=== PATIENT | male | born 1965 | race Two or more races ===

== ENCOUNTER 2023-10-30 22:07 | Inpatient (IN) | payer OTHER, SELFPAY ==
[2023-10-30] VITALS (8 sets, daily range): BP systolic 119–140; BP diastolic 77–106; BMI 28.5
[2023-10-30 17:10] LABS: % Basophils 1.4 % (0-2); % Eosinophils 1.6 % (0-6); % Immature Granulocytes 2.3 % (0-0.5); % Lymphocytes 23.7 % (20.5-51.1); % Monocytes 9.3 % (1.7-9.3); % Neutrophils 61.7 % (42.2-75.2); Absolute Basophils 0.1 10^3/uL (0-0.2); Absolute Eosinophils 0.1 10^3/uL (0-0.7); Absolute Immature Granulocytes 0.1 10^3/uL (0-0.05); Absolute Monocytes 0.4 10^3/uL (0.1-0.6); Absolute Neutrophils 2.7 10^3/uL (1.4-6.5); Hematocrit 32.6 % (39.0-52.0); Hemoglobin 11.4 g/dL (13.0-18.0); Mean Corpuscular Hgb 31.1 pg (27.0-31.0); Mean Corpuscular Volume 89.1 fL (80.0-94.0); Nucleated Red Blood Cells % 0 % (-); Platelet Count 150 10^3/uL (130-400); Red Blood Cell Count 3.66 10^6/uL (4.70-6.10); Red Cell Dist. Width 15.1 % (11.5-14.5); White Blood Cell Count 4.3 10^3/uL (4.8-10.8)
[2023-10-30 17:27] LABS: ALT (SGPT) 50 U/L (0-50); AST (SGOT) 94 U/L (17-59); Albumin 4.4 g/dl (3.5-5.0); Alkaline Phosphatase 44 U/L (38-126); Blood Urea Nitrogen 18 mg/dl (9-20); Calcium 8.7 mg/dl (8.4-10.2); Carbon Dioxide 35 mmol/L (22-30); Chloride 85 mmol/L (98-107); Estimated Creatinine Clearance 112 ml/min; Glucose 121 mg/dl (70-99); Potassium 4.2 mmol/L (3.5-5.1); Sodium 125 mmol/L (135-145); Total Bilirubin 0.6 mg/dl (0.2-1.3); Total Protein 6.6 g/dl (6.3-8.2); eGFR > 60.00
[2023-10-30 17:28] LABS: COVID-19 Antigen Negative (Negative)
[2023-10-30 17:40] LABS: NT-proBNP 32.7 pg/ml; Troponin I < 0.012 ng/ml
--- NOTE | 2023-10-30 17:56 | ED.GENMED ---
History of Present Illness
General
Chief Complaint: Breathing Problem
Source: patient
Time Seen by Provider: 10/30/23 17:43
History of Present Illness
History of Present Illness:
This patient is a 58-year-old male who is overall poor historian, states he was recently diagnosed with lung cancer and just got approved for chemotherapy although it has not yet been started. He does have a port in place. He states that he is
typically dyspneic, but it progressively worse since Monday such that he needed to come to the emergency department today. Since arrival, he states he feels better. He does note lower extremity edema, which has been subacute/chronic in nature. He
denies orthopnea or PND, fever, chills, cough, sore throat, rhinorrhea. He says he 'cannot tell' if he has chest pain. Patient reportedly is supposed to be on oxygen at home but has been noncompliant with that. He states that he lives in a
trailer. He also notes that he has not had a bowel movement in 3 weeks but still has a normal appetite without associated nausea or vomiting. He notes increasing abdominal distention. He denies any other complaints.
Past History
Past History
ED Past Medical History: Other (Lung cancer)
ED Past Surgical History: Orthopedic
Social History
Tobacco: Smoker
Alcohol: None
Drug: None
Living: alone
Employment: Disabled
Phy Exam
Physical Exam
Physical Exam:
GENERAL: Alert , in no apparent distress
EYE: pupils equal and reactive
NECK: Supple, no significant adenopathy.
ENT: o/p clr, mm dry.
CARDIAC: Regular rate and rhythm .
LUNGS: Equal breath sounds bilaterally, no acute respiratory distress, diffuse wheezing noted, speaks in full sent
ABDOMEN: Soft, without focal tenderness, no r/g, nabs, distented
NEUROLOGICAL: Alert and oriented, no focal neuro deficits
SKIN: Warm and dry, skin intact.
MUSCULOSKELETAL: 2+ bilat edema, well perfused.
PSYCH: Normal and appropriate interaction.
Scores
Heart Failure Risk
Heart Failure Risk Score: Not Applicable
Course
Orders/Labs/Results
Orders:
Orders
10/30/23 Lunch
Regular
At Your Request: Full Participation
10/30/23 16:48
EKG [Electrocardiogram (*1)] Urgent
Reason for Study: Shortness of Breath
10/30/23 16:49
EKG- Treatment ONCE
10/30/23 17:03
CBC/With Diff [Complete Blood Count/With Diff] Urgent
CMP [Comprehensive Metabolic Panel] Urgent
COVID-19 Antigen Urgent
Source: Nasal Swab
Pro-BNP [NT-proBNP] Urgent
Serum Osmolality Urgent
Comment: ADD ON
Troponin I Urgent
Influenza A+B Rapid Molecular Urgent
ERIK Source: Nasal Swab
Specimen Description:
10/30/23 17:54
Dexamethasone Sod Phosphate [Decadron] 10 mg IV NOW STA
Ipratropium/Albuterol Sulfate [Duoneb] 3 ml INH R NOW STA
CR Abdomen - 2 Views Urgent
Reason For Exam: DISTENTION, CONSTIPATION
10/30/23 17:55
CR Chest - 2 Views Urgent
Comment:
Reason For Exam: hx L lung ca, now sob
10/30/23 18:00
Dexamethasone Sod Phosphate [Decadron] 8 mg .ROUTE .STK-MED ONE
10/30/23 18:56
CT Abd/pelvis Wo Iv Cont Urgent
Comment:
Reason For Exam: distention
10/30/23 21:07
Straight cath- Treatment ONCE
10/30/23 21:16
Osmolality, Random Urine Urgent
Date Specimen was Collected: 10/30/23
Time Specimen was Collected: 21:06
Urine Sodium Urgent
Date Specimen was Collected: 10/30/23
Time Specimen was Collected: 21:06
10/30/23 21:21
Add On- LAB Urgent
Tests Added?: serum osmolarity
10/30/23 21:35
Admit/Transfer Patient As Directed
Co-Sign Provider:
Level of Care: Inpatient admission
Assign to:: IMU- Intermediate Care
Physician / Group: Lupis/Hospitalist
Diagnosis: Acute hypoxic respiratory failure, COPD exacerbation, Lung CA, pericardial
Reason for Hospitalization: Acute hypoxic respiratory failure, COPD exacerbation, Lung CA, pericardial
effusion
Expected length of stay greater than two midnights?: Yes
ELOS- Estimated Length of Stay in days: 4
I certify the patient meets the requirements for IP care: Yes
10/30/23 21:36
Code Status As Directed
Resuscitation Status: Full Code
10/30/23 22:00
3% Sodium Chloride 250 ml [Sodium Chloride 3%] 250 ml IV ONCE
10/30/23 23:27
Guaifenesin Solution [Robitussin] 200 mg PO Q4HPRN PRN
Ipratropium/Albuterol Sulfate [Duoneb] 3 ml INH R Q4HPRN PRN
Nicotine [Nicoderm Transdermal] 21 mg TRANSDERM DAILY
10/30/23 23:27
CARDIOLOGY CONSULT Routine
Consulting Provider: Alpa Salinas
Was physician already notified: Yes
Reason for consult: Pericardial effusion, moderate , SOB, Lung CA
NEPHROLOGY CONSULT Routine
Consulting Provider: Shweta Vences
Was physician already notified: Yes
Reason for consult: hyponatremia
PULMONARY CONSULT Routine
Consulting Provider: Kyler Magana
Was physician already notified: Yes
Reason for consult: acure hypoxic resp failure, COPD exac, Lung CA
Respiratory Culture/Gram Stain Routine
ERIK Source: Sputum
Specimen Description:
Activity As Directed
Activity Level: With Assistance
Intake/ Output As Directed
Frequency: Per unit guidelines
Medical Records Request [Obtain Records] As Directed
Dates of Information to be Released: 2022
Type of Information Requested: Lab Results
Last Office Visit H&P
Medication List
Consults
Discharge Summary
Progress Notes
If Other, list type of info requested: [facility] and [facility]
Nursing to Place Non Medication Order As Directed
Physician Order: continue 3% sodium as started in the ED at 2056 sodium chloride 3% 250 mL @ 30 mL per hour IV
(stop time noted at 515)
Above order entered?: Yes
Pneumatic Compression Sleeves As Directed
Type: Knee high
Vital Signs As Directed
Frequency: Per unit guidelines
Copd Education [RESP] Routine
O2 Therapy [RESP] Routine
Nasal Cannula Liter Flow: 4 LPM
Titrate/Wean O2 to maintain O2 sat greater than (%): 92
Special Instructions: adjust, if necessary, to avoid hyperoxia in CO2 retainers.
Use High Flow O2 if necessary
DX Deep Vein Thrombosis Video Routine
10/31/23 02:00
Dexamethasone Sod Phosphate [Decadron] 6 mg IV Q8H
10/31/23 05:09
CMP [Comprehensive Metabolic Panel] IN AM
Complete Blood Count/With Diff IN AM
Protime/PTT IN AM
10/31/23 08:00
Ipratropium/Albuterol Sulfate [Duoneb] 3 ml INH R QID
Abnormal Lab Results
10/30/23
17:03
WBC 4.3 L 10^3/uL
(4.8-10.8)
RBC 3.66 L 10^6/uL
(4.70-6.10)
Hgb 11.4 L g/dL
(13.0-18.0)
Hct 32.6 L %
(39.0-52.0)
MCH 31.1 H pg
(27.0-31.0)
RDW 15.1 H %
(11.5-14.5)
Abs Immat Gran (auto) 0.1 H 10^3/uL
(0-0.05)
Absolute Lymphs (auto) 1.0 L 10^3/uL
(1.2-3.4)
Immature Gran % 2.3 H %
(0-0.5)
Sodium 125 L mmol/L
(135-145)
Chloride 85 L mmol/L
(98-107)
Carbon Dioxide 35 H mmol/L
(22-30)
Glucose 121 H mg/dl
(70-99)
Serum Osmolality 269 L mOsm/kg
(275-300)
AST 94 H U/L
(17-59)
10/30/23 17:03
10/30/23 17:03
Vital Signs
Initial and Last Documented VS:
Initial Vital Signs
Temp Pulse Resp BP Pulse Ox
98.5 F 83 25 140/89 87
10/30/23 16:50 10/30/23 16:50 10/30/23 16:50 10/30/23 16:50 10/30/23 16:50
Last Documented Vital Signs
Temp Pulse Resp BP Pulse Ox
99.4 F 87 18 125/77 95
11/02/23 20:00 11/02/23 20:00 11/02/23 20:00 11/02/23 20:00 11/02/23 20:00
*Critical Care Note
Total Time (30-74mins, 75-104mins- exclusive of procedures): 30
Update Note
Update Note:
Patient presents to the Emergency Department with ____dyspnea
Number and Complexity of Problems Addressed at the Encounter
� Chronic conditions affecting care:
� Acute Exacerbation and/or Progression of Chronic Illness:
� Differential Diagnosis includes: But not limited to COPD exacerbation, pneumonia, lung cancer, PE, ACS, pneumothorax, etc. etc.
Amount and/or Complexity of Data to be Reviewed and Analyzed
� I performed an independent evaluation of and my interpretation is:
EKG: Read by me, normal sinus rhythm, normal rate, right axis deviation, no acute ischemia
CT:
Xrays: cxr read by me, no specific pna/ptx/effusion noted, suspect cancer at L mid/lower lung
Laboratory Studies: Mild anemia noted, alkolisis likely chronic, hypoNa (no prior to compare) may be related to known lung Ca
Other:
� Review of other/old records reveals: none available
� Clinical information was obtained by an independent historian:
� Prescriptions/Medications Considered but not given:
� Further testing considered but not performed:
Risk of Complications and/or Morbidity or Mortality of Patient Management
� Social determinants of health affecting care:
� Discussion with other providers (PCP, Hospitalists, Consultants, etc):
� Escalation of care including admission/observation vs risk of discharge considered:58 yr old male, new dx of lung ca, has not yet started treatment, lives in a trailer/poorly compliant/takes no meds/smokes a ppd...presents with
sob....suspect copd exac. No pna, no ptx, etc noted. Improved with nebs/oxygen here. WHeezing improved s/p nebs. While PE risk factors given cancer/smoking, hx/exam etc most c/w copd exac and overall doubt concurrent PE. Also has Na of 125, no
prior records to compare. Pox stable on nc. I am awaiting nephro input on 3% rate...but will start that once I hear back. Nonspecific c/o constipation, moderate stool on axr without obstruction or fa noted, CT pending. D/w hospitalist for admission.
8:59 PM patient remained stable, blood pressure and heart rate specifically within normal limits. Upon my review, CAT scan consistent with pericardial effusion. However, patient is not acutely ill and I suspect may be cancerous related and more
chronic. Text sent to cardiology for their input. Case also discussed with nephrology, recommend rate at 30 cc/h which I have started and communicated to admitting hospitalist.
ED Attending Note
-
Portions of this chart may have been created with voice recognition software.� Occasional wrong word or��sound alike� substitutions may have occurred due to the inherent limitations of voice recognition software.
Discharge Plan
Departure
Patient Disposition: Admit
Date of Disposition: 10/30/23
Time of Disposition: 20:20
Admit to: Telemetry
Presentation/result/management discussed w/ accepting MD/DO: Hospitalist
Condition: Fair
Discharge Problem:
Acute exacerbation of chronic obstructive pulmonary disease, Acute hyponatremia
Interventions
Interventions:
*Risk Screen - Suicide Last Done: 10/30/23 16:50
*General Assessment Last Done: 10/30/23 16:50
*Neglect/Abuse Screening Last Done: 10/30/23 16:50
ED- Fall Risk Assessment Last Done: 10/30/23 16:57
*ED COVID-19 Vaccine History Last Done: 10/30/23 16:57
*Nursing Disposition Last Done: 10/30/23 23:10
ED- Cardiac Assessment Last Done: 10/30/23 16:57
ED- Pulmonary Assessment Last Done: 10/30/23 16:57
Discharge Date and Time
Discharge Date/Time: 10/30/23 23:10
[2023-10-30] MEDS: DECADRON 10 MG IV (18:04)
[2023-10-30] MEDS: DUONEB 3 ML INH (18:05)
--- NOTE | 2023-10-30 21:16 | HPS.HSE ---
Family Physician
-
Family Physician: * NONE
Chief Complaint
-
SOB
History of Present Illness
The patient is a 58-year-old gentleman with past medical history significant for recently diagnosed lung cancer being treated at [facility], the patient notes a trail 8 months ago of experimental lung ca txt that failed, and he has been
awaiting insurance approval for a second therapy however does not have transportation to receive this chemotherapy at this time, tobacco abuse 1 pack/day, likely COPD, came to emergency department due to progressive worsening of dyspnea since
Monday. He typically does have underlying dyspnea as well however it has been worsening. This is been associated with some lower extremity edema that is subacute or chronic in nature. He denies orthopnea, no PND, no fevers chills no cough, no
soreness of throat, no rhinorrhea nor upper respiratory infection symptoms. He notes that he is unable to tell if he has chest pain because he has pain in the port region. He says that he does sleep on the port nightly. He denies any substernal
chest pain at this time. He says that he is supposed to use oxygen at home however has been noncompliant. He is also noncompliant with medications. Of note he lives in a trailer and does not have a toilet. He notes that he has been constipated
for several days now. He has been able to urinate and he denies dysuria. He denies anorexia and says that he has been able to drink and eat without problems.
On arrival to the emergency department his oxygen saturation was in the 80s on room air and he was placed on 4 L. His oxygen is currently satting at 96%.
ED treatment Decadron 10 mg IV once, DuoNeb once, hypertonic saline 3% at 30 mL/h for 250 mL started in the ED
Medical History
Past Medical History
Past Medical History: Reports Cancer (Lung) and COPD
Past Surgical History: Reports Orthopedic and Other (Port placement Right upper chest)
Social History
Tobacco: Smoker (1PPD)
Living: Other (Trailer, no toilet, has running water access)
Family History
Family History: Not pertinent
Allergies / Home Medications
Allergies reflects when Allergies were last updated in [facility].
Home Medications with original date entered in [facility]
Allergy/Medication List:
No active medications
Review of Systems
-
A 12 point ROS was completed and negative except as noted: Yes
Physical Exam
Vital Signs
Vital Signs
Temp Pulse Resp BP Pulse Ox
98.5 F 68 18 125/82 96
10/30/23 16:50 10/30/23 20:42 10/30/23 20:42 10/30/23 20:00 10/30/23 20:42
Physical Exam
General: Comfortable, Conversant, Appears Chronically Ill and Other (hoarse voice)
HEENT: NormoCephalic, Anicteric and Other (dry)
Respiratory: Wheezes (diffuse expiratory wheeze, tight lungs with little air movement)
Cardiac: S1/S2 and Regular Rhythm
Laboratory Results
-
10/30/23 17:03
10/30/23 17:03
Laboratory Results
Total Bilirubin 0.6 mg/dl (0.2-1.3) 10/30/23 17:03
AST 94 U/L (17-59) H 10/30/23 17:03
ALT 50 U/L (0-50) 10/30/23 17:03
Alkaline Phosphatase 44 U/L (38-126) 10/30/23 17:03
Troponin I < 0.012 ng/ml 10/30/23 17:03
Impression/Plan
-
IMPRESSION:
# Acute hypoxic respiratory failure likely multifactorial due to lung cancer and COPD exacerbation
SARS-CoV-2 antigen negative, Influenza A and B negative
-Continue oxygen at 4 L
-DuoNebs scheduled and as needed
-Continue steroids 3 times daily IV
-Pulm Consult appreciated
# Lung cancer�per the patient has been treated at [facility]. He had an experimental drug approximately 8 months ago that failed, and was supposed to receive chemotherapy. He notes that his insurance just approved this recently however he
has been unable to find a ride to the hospital to get chemotherapy
-Obtain records from [facility]
-Consider oncology consultation here pending records and clinical course
-Right internal jugular [id number] catheter in the right upper chest, clean dry and intact
# Hyponatremia sodium level 125, unknown baseline sodium level
-Obtain prior records from [facility]
-Nephrology consultation appreciated
-Patient is receiving 3% sodium chloride in the emergency department at 30 cc/h for a total of 250 cc and we will repeat his sodium level in 4 to 6 hours.
-Monitor electrolytes and sodium level closely.
-Urine studies including urine sodium sodium pending, serum osmolality
# Tobacco abuse, 1 pack/day
-Starting nicotine patch here
-Encourage smoking cessation
# Pericardial effusion, possibly malignant although
-No evidence for tamponade
-Cardiology has been consulted. There is no indication for an acute procedure at this time
-Will monitor the patient in the IMU and on telemetry monitoring
# Mild transaminitis with AST of 94
-Repeat LFTs in the morning
# Constipation
-Will start bowel regimen and monitor
DVT prophylaxis-PCDs only at this time due to pericardial effusion
Full code
[2023-10-30 21:33] LABS: Osmolality Urine 522 mOsm/kg (300-900)
[2023-10-30] MEDS: SODIUM CHLORIDE 3% 250 IV (21:37)
[2023-10-30 21:41] LABS: Osmolality Serum 269 mOsm/kg (275-300)
[2023-10-30 21:46] LABS: Urine Sodium 42 mmol/L (30-90)
[2023-10-31] VITALS (18 sets, daily range): BP systolic 88–133; BP diastolic 55–94; PULSE 2–79; BMI 27.7
[2023-10-31] MEDS: DUONEB 3 ML INH ×5 (00:14→20:14)
[2023-10-31] MEDS: NICODERM TRANSDERMAL 21 MG TRANSDERM ×2 (00:37→08:45)
[2023-10-31] MEDS: MIRALAX 17 GRAMS PO ×2 (00:37→08:44)
[2023-10-31] MEDS: SENOKOT 8.6 MG PO ×3 (00:37→20:40)
[2023-10-31] MEDS: COLACE 100 MG PO ×3 (00:37→20:40)
--- NOTE | 2023-10-31 02:24 | PTCARENOTE ---
Addendum entered by Tory Mendes RN 10/31/23 06:22:
Pt hard to arouse. When awoken Pt able to answer questions appropriately
Addendum entered by Tory Mendes RN 10/31/23 06:19:
Repeat ABG pH 7.18 pCO2 98, night WELFARE ADVISER and RT aware. BiPAP setting changed 20/5 5L.
Addendum entered by Tory Mendes RN 10/31/23 02:57:
ABG critical results pH 7.18 pCO2 97, sp Gambling Cashier made aware. Pt will be placed on Bipap.
Original Note:
Pt arrived from ED on 4L NC RR 22. Pt able to answer admit questions. Pt refusing information on advance directive and living will. At first Pt refusing to give a personal property appraiser, after education and emotional support Pt willing to put Daughter down
as contact. Daughter, Eva Erwin [phone]. Pt bowel regiment given, Pt requesting to wait on enema a few hours to see if oral medication work, education given risk explained. During night Pt SPO2 dropping to 78%. Pt placed on midflow at 15
SPO2 up to 86%, NRB added Pt now at 97%. Pt not as easily arousable, when finally awaken Pt was able to answer question appropriately. No previous ABG, Sp RIVAS made aware of changes and placed order for ABG.
[2023-10-31 02:43] LABS: B.E. 4.8 mmol/L; HCO3 36.2 mmol/L (21-28); O2 Saturation % 98.3 % (94-98); PO2 402 mmHg (83-108)
[2023-10-31 02:44] LABS: O2 Therapy 92%/15L; pH 7.18 (7.35-7.45)
[2023-10-31] MEDS: DECADRON 6 MG IV ×3 (02:44→17:03)
[2023-10-31 02:45] LABS: PCO2 97 mmHg (35-48)
[2023-10-31 05:17] LABS: % Basophils 0.2 % (0-2); % Immature Granulocytes 2.2 % (0-0.5); % Lymphocytes 7.9 % (20.5-51.1); % Monocytes 3.5 % (1.7-9.3); % Neutrophils 86.2 % (42.2-75.2); Absolute Immature Granulocytes 0.1 10^3/uL (0-0.05); Absolute Lymphocytes 0.3 10^3/uL (1.2-3.4); Absolute Monocytes 0.1 10^3/uL (0.1-0.6); Absolute Neutrophils 3.5 10^3/uL (1.4-6.5); Hematocrit 35.1 % (39.0-52.0); Mean Corp Hgb Conc. 34.2 g/dL (33.0-37.0); Mean Corpuscular Hgb 31.3 pg (27.0-31.0); Mean Corpuscular Volume 91.4 fL (80.0-94.0); Mean Platelet Volume 10.3 fL (7.4-10.4); Nucleated Red Blood Cells % 0 % (-); Platelet Count 153 10^3/uL (130-400); Red Blood Cell Count 3.84 10^6/uL (4.70-6.10); Red Cell Dist. Width 15.1 % (11.5-14.5)
[2023-10-31 05:30] LABS: INR 1.05; PT 13.5 Sec (11.4-14.6)
[2023-10-31 05:31] LABS: APTT 34.9 Sec (23.4-35.0)
[2023-10-31 05:47] LABS: ALT (SGPT) 52 U/L (0-50); AST (SGOT) 88 U/L (17-59); Albumin 4.4 g/dl (3.5-5.0); Alkaline Phosphatase 41 U/L (38-126); Blood Urea Nitrogen 16 mg/dl (9-20); Calcium 8.3 mg/dl (8.4-10.2); Carbon Dioxide 38 mmol/L (22-30); Chloride 88 mmol/L (98-107); Estimated Creatinine Clearance 112 ml/min; Glucose 143 mg/dl (70-99); Potassium 4.8 mmol/L (3.5-5.1); Sodium 129 mmol/L (135-145); Total Bilirubin 0.8 mg/dl (0.2-1.3); Total Protein 6.6 g/dl (6.3-8.2); eGFR > 60.00
[2023-10-31 05:57] LABS: B.E. 5.2 mmol/L; HCO3 36.6 mmol/L (21-28); O2 Saturation % 98.3 % (94-98); PO2 137 mmHg (83-108)
[2023-10-31 05:58] LABS: O2 Therapy bipap 96%
[2023-10-31 05:59] LABS: PCO2 98 mmHg (35-48); pH 7.18 (7.35-7.45)
--- NOTE | 2023-10-31 07:52 | CON.CAR ---
Addendum entered and electronically signed by Vamshi Polk MD 10/31/23 10:47:
I saw and examined the patient.
The MANAGER EMPLOYEE BENEFITS's note was reviewed and I agree with the note.
58-year-old male with history of COPD , lung cancer and chronic edema who presented with shortness of breath. Patient noted to have hyper Respiratory failure currently on BiPAP pCO2 remained at 98. Patient being seen by pulmonary. Chest x-ray
without overt evidence of heart failure and proBNP 32. Echocardiogram shows moderate circumferential pericardial effusion. There is some dilation of the IVC but not clear hemodynamic compromise. Patient with wheezing on exam. ABG with pCO2 of 98
despite BiPAP. PAP. Even with pCO2 of 98 patient is arousable and responsive. No current complaints of chest pain respiratory status is tenuous.
-Monitor respiratory status and need for intubation closely.
-Additional management of hypercapnic respiratory failure as directed by pulmonary. Please see pulmonary consultation
-Continue treatment of COPD with combination of nebs and steroids as directed by pulmonary and hospitalist.
-No diuretic at this time.
-Will need to continue to monitor pericardial fluid effusion closely and assess the need for pericardiocentesis. With history of lung cancer and presence of pericardial effusion a pericardiocentesis may be required.
-Follow-up echo later this week.
-Hyponatremia. Management as directed by primary team.
Original Note:
Consultation
Consultation Request
Date/Time Consultation Requested: 10/30/2023 23:20
Date/Time Consultation Performed: 10/31/2023 08:00
Requesting Provider: Dr. Baugh
Performing Provider: JESUS ALBERTO Sandoval for Dr. Polk
Reason for Consultation: Pericardial effusion, shortness of breath, lung cancer
Medical History
-
Chief Complaint: Shortness of breath
History of Present Illness:
Brandon Erwin is a 58-year-old male who is a poor historian with lung cancer and current smoker with suspected COPD who presented with shortness of breath. Per interviewing, he is supposed to be on oxygen at home. He is not currently using any. His
shortness of breath has been worsening for the past 3 to 5 days. He denies PND and orthopnea. He reports chronic lower extremity edema. He believes it is at its baseline. He was found to be hypoxic in the emergency room with SpO2 in the 80s. His
serum sodium on arrival was 125. Serum osmolality 269. proBNP 32 with a troponin <0.012. He was found to have a pericardial effusion on CAT scan for which cardiology was consulted.
Past Medical History
Past Medical History: Cancer (Lung) and COPD
Past Surgical History: Orthopedic
Social History
Tobacco: Smoker
Alcohol: None
Drug: None
Personal: Single
Living: Alone
Employment: Disabled
Family History
Family History: Reviewed & Not Pertinent (Denies early CAD and SCD.)
Allergies / Home Medications
Allergy/AdvReac Type Severity Reaction Status Date / Time
No Known Allergies Allergy Verified 10/30/23 16:50
�Medication �Instructions �Recorded �Confirmed �Type
No Meds [No Current Medications] 10/30/23 10/30/23 History
Review of Systems
-
History Source: Patient
All other systems: Negative unless noted
Constitutional: Fatigue
EENT: No Symptoms
Respiratory: Trouble Breathing
Cardiac: No Symptoms
Abdomen/GI: Constipated
: No Symptoms
Musculoskeletal: No Symptoms
Skin: No Symptoms
Neurological: No Symptoms
Endocrine: No Symptoms
Hematologic/Lymphatic: No Symptoms
Physical Exam
Vital Signs
Temp Pulse Resp BP Pulse Ox
97.5 F 68 15 95/55 88
10/31/23 03:37 10/31/23 07:31 10/31/23 07:31 10/31/23 06:00 10/31/23 07:31
Lab Results
10/31/23 05:09
10/31/23 05:09
Troponin I < 0.012 ng/ml 10/30/23 17:03
[id number] Pept 32.7 pg/ml 10/30/23 17:03
Physical Exam
General: Well Developed, Well Nourished, No Apparent Distress and Comfortable
HEENT: Normocephalic, Anicteric and Moist Mucous Membranes
Respiratory: Wheezes, Non Labored Respirations and Other (Coarse)
Cardiac: S1/S2, Regular Rhythm and Peripheral Edema (trace non pitting lower extremity)
Breast: Deferred by me
GI: Soft, Non Tender, Non Distended and Normal Bowel Sounds
Rectal: Deferred by Provider
Genito-urinary: No Costovertebral Tender
Musculoskeletal: No Cyanosis
Skin: Warm and Dry
Neuro: AO x 3
Hematologic/Lymphatic: No Lymphadenopathy
Psych: Calm
Impression / Plan
-
Acute hypoxic respiratory failure, likely multifactorial picture
-In the setting of COPD exacerbation with underlying lung cancer
-SARS COV 2-negative, influenza A/B negative
-Wheeze on exam, on intravenous steroids
Metabolic derangement - in the setting of acute on chronic lung disease
-Na 118, persistent hypercapnia & acidosis
Pericardial effusion, on CT scan
-Nontachycardic and normotensive
-Echocardiogram this morning
Hyponatremia, status post 3% NaCl, per Nephrology
COPD, not on medical therapy at home, pulmonary following
Lung cancer, not yet started chemotherapy
Current smoker, cessation recommended
Data Reviewed
-
EKG: Report Reviewed by me (Sinus rhythm, non specific T wave abnormality, rate 82)
Radiology: Report Reviewed by me (CXR: Subtle blunting the posterior costophrenic angle suggesting trace effusion.) and Other (Abd XR: Constipation with moderate to large fecal burden. Mild gaseous distention of the transverse colon. No apparent
small bowel distention or suspicious air-fluid levels to suggest obstruction. No free air identified.)
CT Scan: Report Reviewed by me (Abd/Pel: Moderate to large pericardial effusion. 4 mm left lower lobe nodule. 4.7 mm right lower lobe nodule. )
Labs: Labs Reviewed by me
Old Records: Requested
--- NOTE | 2023-10-31 08:30 | PTCARENOTE ---
Patient received from night court magistrate. Patient resting comfortably in bed. No complaints of pain. Patient was placed on BiPAP overnight due to critical ABG values. Very drowsy but AAO, VSS. Currently on BiPAP 20/ with 5L. Plan for ECHO today.
Call [employer] in reach.
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
[2023-10-31 12:46] LABS: Free T4 < 0.07 ng/dl (0.78-2.19)
--- NOTE | 2023-10-31 14:16 | W.CON.NEPH ---
Consultation
-
Date/Time Consultation Requested: 10/30/2023 23:27
Date/Time Consultation Performed: 10/31/2023 2:17PM
Requesting Provider: Marly Baugh
Performing Provider: Shweta Vences
Reason for Consultation: hyponatremia
Medical History
-
Chief Complaint: hyponatremia
History of Present Illness:
Mr. Erwin is a 58YOM with PMH of lung cancer (treated at [facility]), COPD, tobacco abuse who presented to the ER for worsenign shortness of breath since last week. He has been having trouble obtaining transportation to go to his
treatments. Regarding his SOB, there was some assocaited LE edema. Weight is up 30# over the past few months. Patient apparently lives in a trailer, does not have a toilet. Prior to 6 months ago, he was living in an apartment. He denies any drug
use, alcohol use. He continues to smoke a pack to a pack and a half a day. He states he has never had trouble with his sodium before.
In the ER, he was found to be hypoxic requiring 4L O2, he was transferred to ICU and is now on BiPAP satting well. Patient was on BiPAP during my interview, so most of history if obtained from chart review as he was very difficult to understand.
Past Medical History
lung cancer
tobacco abuse
?COPD
Past Medical History: Other
Past Surgical History: None
Social History
Tobacco: Smoker
Alcohol: None
Drug: None
Personal: Single
Living: Alone
Employment: Disabled
Family History
Family History: Not Pertinent
Allergies / Home Medications
Allergy/AdvReac Type Severity Reaction Status Date / Time
No Known Allergies Allergy Verified 10/30/23 16:50
�Medication �Instructions �Recorded �Confirmed �Type
No Meds [No Current Medications] 10/30/23 10/30/23 History
Review of Systems
-
Unable to obtain full review of systems at this time due to: Patient Intubation
History Source: Patient
All other systems: Negative unless noted
Constitutional: Weight Gain
Respiratory: Trouble Breathing
Cardiac: Chest Pain
: No Symptoms
Musculoskeletal: Edema
Physical Exam
Vital Signs
Vital Signs
Temp Pulse Resp BP Pulse Ox
97.0 F 77 19 124/69 99
10/31/23 11:44 10/31/23 12:00 10/31/23 12:00 10/31/23 12:00 10/31/23 12:00
Lab Results
WBC 4.0 10^3/uL (4.8-10.8) L 10/31/23 05:09
RBC 3.84 10^6/uL (4.70-6.10) L 10/31/23 05:09
Hgb 12.0 g/dL (13.0-18.0) L 10/31/23 05:09
Hct 35.1 % (39.0-52.0) L 10/31/23 05:09
Plt Count 153 10^3/uL (130-400) 10/31/23 05:09
Sodium 129 mmol/L (135-145) L 10/31/23 05:09
Potassium 4.8 mmol/L (3.5-5.1) 10/31/23 05:09
Chloride 88 mmol/L (98-107) L 10/31/23 05:09
Carbon Dioxide 38 mmol/L (22-30) H 10/31/23 05:09
BUN 16 mg/dl (9-20) 10/31/23 05:09
Creatinine 0.8 mg/dL (0.7-1.3) 10/31/23 05:09
eGFR > 60.00 10/31/23 05:09
Glucose 143 mg/dl (70-99) H 10/31/23 05:09
Calcium 8.3 mg/dl (8.4-10.2) L 10/31/23 05:09
Gyw-K-Lnafjapqkla Pept 32.7 pg/ml 10/30/23 17:03
Albumin 4.4 g/dl (3.5-5.0) 10/31/23 05:09
Physical Exam
General: Other (BiPAP in place, awake, does communicate)
HEENT: PERRL, EOMI, Anicteric, Hearing Normal and Oropharynx Clear/Moist
Respiratory: Wheezes
Cardiac: S1/S2, Regular Rate/Rhythm and Edema
Breast: N/A
Abdomen: Soft, Nontender, Nondistended and Normal Bowel Sounds
Rectal: Deferred by Provider
Genito-urinary: No Costovertebral Tender
Musculoskeletal: No Clubbing, No Cyanosis and Edema
Skin: No Rash, Warm, Dry, No Clubbing, No Cyanosis, Normal Turgor and No Bruising
Neuro: Nonfocal/Grossly Intact
Hematologic/Lymphatic: Other (+ cervical lymphadenopathy)
Psych: Mood/afflect pleasant
Data Reviewed
-
Radiology: Image Personally Visualized and interpreted (opacity int he L mid to upper lung )
CT Scan: Report Reviewed by me (Low-attenuation renal structures, as described. The largest measures 4 cm on the left, consistent with cyst. Some are too small to fully characterize. Statistically likely cysts. Consider nonemergent ultrasound
follow-up correlation.)
Labs: Labs Reviewed by me and Discussed with Patient
Old Records: Reviewed
Assessment/Plan
-
Assessment:
Acute hypoxic resp failure
Lung cancer
Hyponatremia
pericardial effusion
Constipation
Plan:
- Na improved from 125 --> 129 with HTS.
- encourage fluid restriction (48oz or less)
- let's see how he does without HTS and trend Na. might need salt tabs/lasix in the future
- urine studies consistent with SIADH
- cysts noted on CT, ultrasound rec'd (ordered)
--- NOTE | 2023-10-31 15:16 | W.PN.HOSP.TC ---
Today's Communication/Plan
-
cont iv steroids
cont NIV
Duonebs
Monitor Na - FWR
F/u Nephro, Pulm, Cards recs
Assessment / Plan
Assessment / Plan
General: Comfortable, Conversant, Appears Chronically Ill and Other (hoarse voice)
HEENT: NormoCephalic, Anicteric and Other (dry)
Respiratory: Wheezes (diffuse expiratory wheeze, tight lungs with little air movement)
Cardiac: S1/S2 and Regular Rhythm
# Acute on chronic hypercapnic respiratory failure
-Acute COPD observation, suspected
-Chronic COPD on chronic O2
SARS-CoV-2 antigen negative, Influenza A and B negative
-BIpAP for now
-DuoNebs scheduled and as needed
-ABG in AM
--Continue IV steroids
-Pulm Consult appreciated
-Still continues to smoke
# Lung cancer
#4.7 mm right lower lobe nodule, 4 mm left lower lobe nodule
-per the patient has been treated at [facility].
-He had an experimental drug approximately 8 months ago that failed, and was supposed to receive chemotherapy. He notes that his insurance just approved this recently however he has been unable to find a ride to the hospital to get chemotherapy
-Right internal jugular Bydwhr-c-Hpxy catheter in the right upper chest, clean dry and intact
-F/u onc outpatient
-unclear staging
# Hyponatremia
-SIADH
-FWR
-improving
-Nephro recs
-Patient is receiving 3% sodium chloride in the emergency department at 30 cc/h for a total of 250 cc and we will repeat his sodium level in 4 to 6 hours.
-Monitor electrolytes and sodium level closely.
# Tobacco abuse, 1 pack/day
-Starting nicotine patch here
-Encourage smoking cessation
# Pericardial effusion, possibly malignant although
-No evidence for tamponade
-Cardiology has been consulted. There is no indication for an acute procedure at this time
-Will monitor the patient in the IMU and on telemetry monitoring
# Mild transaminitis with AST of 94
-Repeat LFTs in the morning
# Constipation
-Will start bowel regimen and monitor
DVT prophylaxis-PCDs only at this time due to pericardial effusion
Full code
Total time spent on today's encounter was 50 minutes which included time spent in counseling the patient/family regarding diagnosis and treatment plan as listed above, goals of care, and symptom management. Case was discussed with nursing staff,
specialists, and care coordinators/case management. All labs and imaging personally reviewed by me. Remainder the time spent in detailed review of previous records, lab data, imaging, and other medical provider documentation.
Anticipated Discharge: > 48 hours
Subjective/Interval History
-
Date of Service: October 31, 2023
Still on BiPAP, respiratory status tenuous.
Objective Data
-
Labs:
Laboratory Results
10/31/23 10/31/23 10/31/23
01:00 05:09 05:46
WBC 4.0 L
Hgb 12.0 L
Hct 35.1 L
Plt Count 153
PT 13.5
INR 1.05
APTT 34.9
HCO3 36.6 H
Sodium Cancelled 129 L
Potassium 4.8
Chloride 88 L
Carbon Dioxide 38 H
BUN 16
Creatinine 0.8
Glucose 143 H
Calcium 8.3 L
Total Bilirubin 0.8
AST 88 H
ALT 52 H
Alkaline Phosphatase 41
10/31/23
08:55
WBC
Hgb
Hct
Plt Count
PT
INR
APTT
HCO3 Cancelled
Sodium
Potassium
Chloride
Carbon Dioxide
BUN
Creatinine
Glucose
Calcium
Total Bilirubin
AST
ALT
Alkaline Phosphatase
Vital Signs:
Vital Signs
Temp Pulse Resp BP Pulse Ox
97.0 F 77 19 124/69 99
10/31/23 11:44 10/31/23 12:00 10/31/23 12:00 10/31/23 12:00 10/31/23 12:00
I&O
10/30/23 10/31/23 11/01/23
06:59 06:59 06:59
Intake Total 500 / 500
Output Total 400 / 400
Balance 100 / 100
Review of Systems
-
History Source: Patient
All other systems: Not reviewed unless documented
Data Reviewed
-
Diagnostic Radiology: Image personally visualized and interpreted and Report Reviewed by me
Labs: Labs Reviewed by me
[2023-10-31] MEDS: LOVENOX 40 MG SC (17:03)
--- NOTE | 2023-10-31 17:16 | CM ---
Patient with Hx including lung CA with Dx Acute on chronic hypercapnic respiratory failure, Acute COPD, hyponatremia, Pericardial effusion. O2 4L BiPAP.
Per nurse Bertrand; shannan speech, bedrest today, patient is eating.
Spoke with patient's brother Indra; he says that the patient stopped doing his follow up and treatment for his lung cancer and would not answer his phone re; medical follow up. He has contact with the patient but doesn't have details about his PLOF
and living environment.
Spoke with patient's daughter Saida (cell [phone]);
the patient has been homeless x 4 years and he had been sleeping on the pavement at an apartment complex in [place].
The patient has recently been staying at his daughter Saida's 2 story house, with Dtr & 2 grandchildren, in [facility], with 3 BORIS, and first floor bedroom/bath.
The patient had been independent in ADLs and ambulation without using any assistive devices.
The patient does not have a car.
Daughter says patient may be interested in housing information. He receives $900/month SS Disability and cannot afford an apartment. He has the ability to buy food. His brother transports him to medical appts.
DME - he has a home O2 machine but is unable to use it as he lost the nurse epidemiologist (DME company unknown)
No prior VN or SNF
The patient has no PCP.
Pharmacy - [facility]
CM continuing to follow for d/c needs.
Plan TBD.
--- NOTE | 2023-10-31 17:30 | PTCARENOTE ---
Soap max enema given due to no response from oral medications
--- NOTE | 2023-10-31 23:14 | PTCARENOTE ---
. Pt ordered regular diet, day shift denies any complications with swallowing for previous meals. Pt does not have teeth, and doesn't wear dentures. He also has a baseline of garbled speech. Anyway, respiratory took him off bipap so he could eat
dinner and take HS pills. Doing well on NC 02 at 4L. While I was at bedside he was eating dinner and took a drink of liquid, he began coughing loudly and had to stand up and lean over, remained at his side the whole time. After about 30 seconds he
was able to to coughing and talk to me, he said this happens about a few times a week at home and he has to take ad rink to clear his throat when it happens at home. He did not have any change in resp status, sat remains at 95% and no dyspnea. lung
sounds remain with expiratory wheezes which were present before this occurred. Asked him to take a small bite and sip and I watched his swallow which appeared intact, he did not cough after this time. unsure if he has some dyspnea going on, or if we
should get a CXR to be sure he didn't aspirate. Took his food from him for the time being. and gonna throw a speech eval in. plan was to place back on bipap for the night after eating, however wanted to hold off until you weighed in. Also ABG in for
AM.
--- NOTE | 2023-10-31 23:22 | PTCARENOTE ---
Pt ordered regular diet, day shift denies any complications with swallowing for previous meals. Pt does not have teeth, and doesn't wear dentures. He also has a baseline of garbled speech. Respiratory took him off bipap so he could eat dinner and
take HS pills. Doing well on NC 02 at 4L, sat 95%. While I was at bedside he was eating dinner and took a drink of liquid, he began coughing loudly and had to stand up and lean over, remained at his side the whole time. After about 30 seconds he was
able stop to coughing and talk to me, he said this happens about a few times a week at home and he has to take a drink to clear his throat when it happens at home. He did not have any change in resp status, sat remains at 95% and no dyspnea. Lung
sounds remain with expiratory wheezes which were present before this occurred. Asked him to take a small bite and sip and I watched his swallow which appeared intact, he did not cough after this time. Speech eval placed by this RN. COMMUNICATION CENTER OPERATOR notified of
occurrence, due to stability in resp status and no change post occurrence, no new orders placed by COMMUNICATION CENTER OPERATOR.
[2023-11-01] VITALS (14 sets, daily range): BP systolic 80–132; BP diastolic 63–88; PULSE 2–85; O2SAT 90; BMI 27.3
[2023-11-01] MEDS: DECADRON 6 MG IV ×3 (02:00→18:09)
--- NOTE | 2023-11-01 03:18 | DOWNTIME ---
There was a [employer] Client Director Selection And Administration Downtime on 11/01/2023 from 0100 to 11/01/2023 at 0255. Downtime documentation of patient's care, including medication administrations, has been reconciled in the electronic record per guidelines. Refer to the
patient's paper chart under the miscellaneous tab to see printed paper medication records and downtime forms.
[2023-11-01 04:56] LABS: B.E. 11.4 mmol/L; HCO3 39.9 mmol/L (21-28); O2 Saturation % 96.3 % (94-98); PO2 75 mmHg (83-108); pH 7.34 (7.35-7.45)
[2023-11-01 04:59] LABS: O2 Therapy BIPAP 15/5/2
[2023-11-01 05:00] LABS: PCO2 74 mmHg (35-48)
[2023-11-01 06:25] LABS: Hematocrit 32.6 % (39.0-52.0); Mean Corp Hgb Conc. 33.7 g/dL (33.0-37.0); Mean Corpuscular Volume 91.8 fL (80.0-94.0); Mean Platelet Volume 10.8 fL (7.4-10.4); Platelet Count 164 10^3/uL (130-400); Red Blood Cell Count 3.55 10^6/uL (4.70-6.10); Red Cell Dist. Width 15.3 % (11.5-14.5); White Blood Cell Count 4.9 10^3/uL (4.8-10.8)
[2023-11-01 06:29] LABS: ALT (SGPT) 42 U/L (0-50); AST (SGOT) 63 U/L (17-59); Alkaline Phosphatase 40 U/L (38-126); Blood Urea Nitrogen 19 mg/dl (9-20); Carbon Dioxide 38 mmol/L (22-30); Chloride 92 mmol/L (98-107); Estimated Creatinine Clearance 112 ml/min; Glucose 134 mg/dl (70-99); Phosphorus 3.8 mg/dl (2.5-4.5); Potassium 5.1 mmol/L (3.5-5.1); Sodium 133 mmol/L (135-145); Total Bilirubin 0.5 mg/dl (0.2-1.3); Total Protein 6.2 g/dl (6.3-8.2); eGFR > 60.00
[2023-11-01] MEDS: DUONEB 3 ML INH ×4 (07:12→19:49)
--- NOTE | 2023-11-01 07:30 | W.PN.PUL3 ---
Today's Communication / Plan
-
Continue BiPAP
No change in steroids, nebs
Follow pericardial effusion
Out of bed to chair, ambulate
Assessment
-
58-year-old male with history of COPD, lung cancer ongoing tobacco use presents with progressive shortness of breath for the past 5 days. Patient has been living in a trailer for the last 6 months, chronic constipation. He has gained 30 pounds
over the past 6 months. He has not pursued therapy for his lung cancer due to transportation and insurance issues. We are asked to help from a pulmonary standpoint
Acute on chronic hypercapnic respiratory failure
Acute COPD exacerbation, suspected
Moderate pericardial effusion
Anemia/leukopenia
Hyponatremia
Hyperglycemia
Transaminitis
Abnormal EKG
30 pound weight gain x 6 months
Conditions present prior to admission
History of lung cancer
Status post chemotherapy, noncompliant due to transportation
Diagnosed 2022, followed at [facility]
Left upper lobe abnormality per imaging, stage unclear
4.7 mm right lower lobe nodule, 4 mm left lower lobe nodule
COPD on home oxygen
Unfortunately, patient cannot recall any of his details of his medical history
Plan/recommendations
At this time, patient appears to be somewhat improved from mental status
He is awake and alert and following commands, providing history. Muscle strength is 5/5
Took off BiPAP earlier this morning
wheezing on exam noted
He continues to smoke 1 to 1-1/2 packs a day
Denies any pain medications, narcotic therapy, drug use
ABG this morning reviewed, 7./
Moving forward
Acute on chronic hypercarbic respiratory failure noted
It appears to be compensated at this time suggesting pretty severe hypercapnia
There is likely a component of sleep apnea/hypoventilation
Abdominal CT without significant parenchymal disease at the base
Chest x-ray with left upper lobe mass
For now we will continue with BiPAP nightly and as needed during the day
Reviewed underlying lung disease with patient
Avoid narcotic therapy, anxiolytic therapy
Continue with empiric steroids for suspected COPD exacerbation, nebulized therapy
No change at this time. Wheezing persists
Reviewed cardiology correspondence
Echocardiogram noted. Moderate pericardial effusion noted
Patient is making urine
Troponin, proBNP negative
Cardiology following
Will try to obtain records from [facility] (oncology, pulmonary)
History of lung cancer with prior incomplete treatment noted
Head of bed elevated, aspiration precautions
DVT prophylaxis: Continue enoxaparin. Continue mechanical prophylaxis
GI prophylaxis: Not indicated
Out of bed to chair, ambulate, PT/OT
Subjective Data
-
Date of Service:
Date of Service: November 01, 2023
Subjective:
Patient off BiPAP this morning. Denies shortness of breath, chest pain, abdominal pain, nausea. Has mild cough. Patient is awake at this time, examined earlier this morning
Objective Data
Data Reviewed
Vital Signs / I&O / Oxygen:
Vital Signs
Temp Pulse Resp BP Pulse Ox
97.4 F 72 15 132/76 95
11/01/23 04:23 11/01/23 07:13 11/01/23 07:13 11/01/23 06:00 11/01/23 07:13
Intake and Output
10/31/23 11/01/23 11/02/23
06:59 06:59 06:59
Intake Total 500 / 500
Output Total 400 / 400 2650 / 2650
Balance 100 / 100 -2650 / -2650
SaO2 95
Nasal Cannula flow liters per 6
minute
Physical Exam
General: Comfortable
HEENT: Normocephalic and Anicteric
Cardiovascular: S1-S2, Regular Rhythm, Murmur (n) and Rub (n)
Respiratory: Wheeze (Few scattered), Crackles (n), Rhonchi (Mild), Non-Labored Respirations, Stridor (n) and Other (Bronchial breath sounds)
GI: Soft, Non Distended and Non Tender
Neurology: Awake, Alert and No Motor Deficits (Moves extremities, generally weak)
Skin: Cyanosis (n), Jaundice (n) and Rash (n)
Labs/Micro/Reports
Lab Data
11/01/23 05:32
11/01/23 05:32
Laboratory Results
10/31/23 11/01/23
08:55 04:35
pH Cancelled 7.34 L
pCO2 Cancelled 74 H*
pO2 Cancelled 75 L
HCO3 Cancelled 39.9 H
O2 Delivery Level Cancelled Bipap
Microbiology
10/30/23 17:03 Nasal Swab Influenza Types A & B (GREGORY) - Final
Negative for Influenza A & B, NAAT
Negative results must be combined with clinical observations
and patient history.
Nucleic Acid Amplification test (NAAT)performed on the
[employer] platform.
[2023-11-01] MEDS: NICODERM TRANSDERMAL 21 MG TRANSDERM (09:11)
[2023-11-01] MEDS: MIRALAX 17 GRAMS PO (09:12)
[2023-11-01] MEDS: COLACE 100 MG PO ×2 (09:12→20:53)
[2023-11-01] MEDS: SENOKOT 8.6 MG PO ×2 (09:12→20:53)
--- NOTE | 2023-11-01 09:18 | W.PN.NEPH.PH ---
Today's Communication / Plan
-
lasix
Assessment/Plan
-
Assessment:
Acute hypoxic resp failure
Lung cancer
Hyponatremia
pericardial effusion
Constipation
Plan:
lasix daily 10mg
follow BMP
-
-
Date of Service: November 01, 2023
CC / HPI / ROS
-
Chief Complaint:
hyponatremia
History of Present Illness:
Na up to 133
BP stable
K normal
Review of Systems:
no CP/SOB
Labs
-
Labs:
WBC 4.9 10^3/uL (4.8-10.8) 11/01/23 05:32
RBC 3.55 10^6/uL (4.70-6.10) L 11/01/23 05:32
Hgb 11.0 g/dL (13.0-18.0) L 11/01/23 05:32
Hct 32.6 % (39.0-52.0) L 11/01/23 05:32
Plt Count 164 10^3/uL (130-400) 11/01/23 05:32
Sodium 133 mmol/L (135-145) L 11/01/23 05:32
Potassium 5.1 mmol/L (3.5-5.1) 11/01/23 05:32
Chloride 92 mmol/L (98-107) L 11/01/23 05:32
Carbon Dioxide 38 mmol/L (22-30) H 11/01/23 05:32
BUN 19 mg/dl (9-20) 11/01/23 05:32
Creatinine 0.8 mg/dL (0.7-1.3) 11/01/23 05:32
eGFR > 60.00 11/01/23 05:32
Glucose 134 mg/dl (70-99) H 11/01/23 05:32
Calcium 9.0 mg/dl (8.4-10.2) 11/01/23 05:32
Phosphorus 3.8 mg/dl (2.5-4.5) 11/01/23 05:32
Eed-C-Akbwwfyetga Pept 32.7 pg/ml 10/30/23 17:03
Albumin 4.0 g/dl (3.5-5.0) 11/01/23 05:32
Physical Exam
-
Vital Signs:
Vital Signs
Temp Pulse Resp BP Pulse Ox
97.8 F 72 15 132/76 95
11/01/23 07:35 11/01/23 07:13 11/01/23 07:13 11/01/23 06:00 11/01/23 07:13
Cardiovascular:: Regular rate and rhythm
Respiratory:: Bilateral: Coarse and Bilateral: Rhonchi
Lung Excursion:: Normal
Abdomen:: Nontender and Soft
Bowel Sounds:: Normal
Extremity Edema:: None: Bilateral:
--- NOTE | 2023-11-01 09:30 | PTCARENOTE ---
Patient received from shift boss. Patient resting comfortably in bed. No complaints of pain. Patient wore BiPAP, repeat ABG drawn and improved . AAO, VSS. Patient off BiPAP in AM, refuses to go back on at this time. Pulmonary at bedside
explained the patient importance of wearing the BiPAP. After pulmonary left, patient expressed the idea of signing out AMA and wanting to go back o the trip he paid for. Hospitalist made aware, patient was told hospitalist will be around soon and
to wait to speak to him to make an informed decision. Explained to patient the need to stay in the hospital to receive treatment. Patient receptive to conversation. Call verduzco in reach.
--- NOTE | 2023-11-01 10:04 | W.PN.CD ---
Today's Communication / Plan
-
continue to optimize pulmonary issues
follow up echo on or Monday
will review issues related to pulmonary disease and lung Ca with pulmonary
Impression / Plan
-
Acute hypoxic respiratory failure, likely multifactorial picture
-patietnw ith hypercapnea - was on Bipap. Improving. In chair . Off Bipap
-In the setting of COPD exacerbation with underlying lung cancer
-SARS COV 2-negative, influenza A/B negative
-Wheeze on exam,
Pericardial effusion, - moderate sized. without clear evidence of hemodynamic significance. BP and HR stable.
- continue to monitor. Follow up echo later this week
- with underlying lung Ca history may need to consider pericardiocentesis. Optimize resp status. will review with pulmonary
Hyponatremia - improving managment per neprhology
Pericardial effusion,
Hyponatremia, status post 3% NaCl, per Nephrology
COPD, not on medical therapy at home, pulmonary following
Lung cancer, not yet started chemotherapy
Current smoker, cessation recommended
Physical Exam
Vital Signs/Labs
Vital Signs
Temp Pulse Resp BP Pulse Ox
97.8 F 72 15 132/76 95
11/01/23 07:35 11/01/23 07:13 11/01/23 07:13 11/01/23 06:00 11/01/23 07:13
10/31/23 11/01/23 11/02/23
06:59 06:59 06:59
Actual Weight 95.1 kg 94 kg
11/01/23 05:32
11/01/23 05:32
PT 13.5 Sec (11.4-14.6) 10/31/23 05:09
INR 1.05 10/31/23 05:09
APTT 34.9 Sec (23.4-35.0) 10/31/23 05:09
Magnesium 2.0 mg/dl (1.6-2.3) 11/01/23 05:32
Free T4 < 0.07 ng/dl (0.78-2.19) L 10/31/23 05:09
10/30/23
17:03
Psw-Z-Yqedkfzdiqo Pept 32.7
LAB Results
10/30/23
17:03
Troponin I < 0.012
Physical Exam
Constitutional: No acute distress
Cardiovascular: Rhythm & rate is regular
Respiratory: Rhonchi Absent and Wheeze Present
GI: Soft and Non tender
Neuro/Psych: Alert
Other: Other (cooperative. normal mood)
Data Reviewed
-
Date of Service: November 01, 2023
Medical Decision Making: Reviewed Test Results
Echo: Report Reviewed by me
Medical Tests (PFT, Pathology etc): Report Reviewed by me
Labs: Labs Reviewed by me
[2023-11-01] MEDS: LASIX 10 MG PO (11:50)
--- NOTE | 2023-11-01 14:33 | W.PN.HOSP.TC ---
Today's Communication/Plan
-
Continue IV steroids
DuoNebs
BiPAP at night, naps
Repeat echo /Monday
Lasix
Assessment / Plan
Assessment / Plan
General: Comfortable, Conversant, Appears Chronically Ill and Other (hoarse voice)
HEENT: NormoCephalic, Anicteric and Other (dry)
Respiratory: Wheezes (diffuse expiratory wheeze, tight lungs with little air movement)
Cardiac: S1/S2 and Regular Rhythm
# Acute on chronic hypercapnic respiratory failure
-Acute COPD observation, suspected
-Chronic COPD on chronic O2
SARS-CoV-2 antigen negative, Influenza A and B negative
-Continue BiPAP, nights and naps
-DuoNebs scheduled and as needed
--Continue IV steroids
-Pulm Consult appreciated
-Still continues to smoke
# Lung cancer
#4.7 mm right lower lobe nodule, 4 mm left lower lobe nodule
-per the patient has been treated at [facility].
-He had an experimental drug approximately 8 months ago that failed, and was supposed to receive chemotherapy. He notes that his insurance just approved this recently however he has been unable to find a ride to the hospital to get chemotherapy
-Right internal jugular Bsmwsa-d-Epyh catheter in the right upper chest, clean dry and intact
-F/u onc outpatient
-unclear staging
# Hyponatremia
-SIADH
-FWR
� Lasix
-improving
-Nephro recs
-Patient is receiving 3% sodium chloride in the emergency department at 30 cc/h for a total of 250 cc and we will repeat his sodium level in 4 to 6 hours.
-Monitor electrolytes and sodium level closely.
# Tobacco abuse, 1 pack/day
-Starting nicotine patch here
-Encourage smoking cessation
# Pericardial effusion, possibly malignant
-No evidence for tamponade
-Cardiology has been consulted. There is no indication for an acute procedure at this time
-Will monitor the patient in the IMU and on telemetry monitoring
�Repeat echo /Monday
# Mild transaminitis with AST of 94
-Repeat LFTs in the morning
# Constipation
-Will start bowel regimen and monitor
DVT prophylaxis-Lovenox
Full code
Total time spent on today's encounter was 51 minutes which included time spent in counseling the patient/family regarding diagnosis and treatment plan as listed above, goals of care, and symptom management. Case was discussed with nursing staff,
specialists, and care coordinators/case management. All labs and imaging personally reviewed by me. Remainder the time spent in detailed review of previous records, lab data, imaging, and other medical provider documentation.
Anticipated Discharge: > 48 hours
Subjective/Interval History
-
Date of Service: November 01, 2023
Patient on BiPAP, eating in chair
Objective Data
-
Labs:
Laboratory Results
11/01/23 11/01/23
04:35 05:32
WBC 4.9
Hgb 11.0 L
Hct 32.6 L
Plt Count 164
HCO3 39.9 H
Sodium 133 L
Potassium 5.1
Chloride 92 L
Carbon Dioxide 38 H
BUN 19
Creatinine 0.8
Glucose 134 H
Calcium 9.0
Total Bilirubin 0.5
AST 63 H
ALT 42
Alkaline Phosphatase 40
Vital Signs:
Vital Signs
Temp Pulse Resp BP Pulse Ox
98.2 F 79 24 120/84 93
11/01/23 11:40 11/01/23 14:00 11/01/23 14:00 11/01/23 11:50 11/01/23 14:00
I&O
10/31/23 11/01/23 11/02/23
06:59 06:59 06:59
Intake Total 500 / 500
Output Total 400 / 400 2650 / 2650 950 / 950
Balance 100 / 100 -2650 / -2650 -950 / -950
Review of Systems
-
History Source: Patient
All other systems: Not reviewed unless documented
Data Reviewed
-
Diagnostic Radiology: Image personally visualized and interpreted and Report Reviewed by me
Labs: Labs Reviewed by me
[2023-11-01] MEDS: LOVENOX 40 MG SC (18:10)
--- NOTE | 2023-11-01 21:03 | PTCARENOTE ---
Patient received from previous RN. Pt AAO. Making needs known. Pt on 4LNC 02. Sats 92%. Pt RR even and unlabored. Expiratory wheeze present, coarse throughout. Bipap ordered HS. Call light in reach.
[2023-11-02] VITALS (12 sets, daily range): BP systolic 101–125; BP diastolic 65–95; PULSE 2–78
[2023-11-02] MEDS: DECADRON 6 MG IV ×2 (03:41→09:40)
[2023-11-02 05:18] LABS: Hematocrit 32.9 % (39.0-52.0); Hemoglobin 11.2 g/dL (13.0-18.0); Mean Corpuscular Hgb 31.4 pg (27.0-31.0); Mean Corpuscular Volume 92.2 fL (80.0-94.0); Mean Platelet Volume 10.5 fL (7.4-10.4); Platelet Count 166 10^3/uL (130-400); Red Blood Cell Count 3.57 10^6/uL (4.70-6.10); Red Cell Dist. Width 15.5 % (11.5-14.5); White Blood Cell Count 5.5 10^3/uL (4.8-10.8)
[2023-11-02 05:39] LABS: ALT (SGPT) 39 U/L (0-50); AST (SGOT) 57 U/L (17-59); Albumin 3.9 g/dl (3.5-5.0); Alkaline Phosphatase 41 U/L (38-126); Blood Urea Nitrogen 21 mg/dl (9-20); Calcium 9.1 mg/dl (8.4-10.2); Chloride 90 mmol/L (98-107); Estimated Creatinine Clearance 112 ml/min; Glucose 116 mg/dl (70-99); Magnesium 2.1 mg/dl (1.6-2.3); Phosphorus 3.2 mg/dl (2.5-4.5); Potassium 4.9 mmol/L (3.5-5.1); Sodium 134 mmol/L (135-145); Total Bilirubin 0.3 mg/dl (0.2-1.3); Total Protein 6.2 g/dl (6.3-8.2); eGFR > 60.00
[2023-11-02 05:59] LABS: Carbon Dioxide 42 mmol/L (22-30)
[2023-11-02] MEDS: DUONEB 3 ML INH ×4 (07:47→20:18)
--- NOTE | 2023-11-02 09:18 | W.PN.PUL.V3 ---
Today's Communication / Plan
-
Continue nebulizers
Decrease Decadron
Continue BiPAP
Smoking cessation counseling
Assessment
-
58-year-old male with history of COPD, lung cancer ongoing tobacco use presents with progressive shortness of breath for the past 5 days. Patient has been living in a trailer for the last 6 months, chronic constipation. He has gained 30 pounds
over the past 6 months. He has not pursued therapy for his lung cancer due to transportation and insurance issues. We are asked to help from a pulmonary standpoint
Acute on chronic hypercapnic respiratory failure
Acute COPD exacerbation, suspected
Moderate pericardial effusion
Anemia/leukopenia
Hyponatremia
Hyperglycemia
Transaminitis
Abnormal EKG
30 pound weight gain x 6 months
Conditions present prior to admission
History of lung cancer
Status post chemotherapy, noncompliant due to transportation
Diagnosed 2022, followed at [facility]
Left upper lobe abnormality per imaging, stage unclear
4.7 mm right lower lobe nodule, 4 mm left lower lobe nodule
COPD on home oxygen
Unfortunately, patient cannot recall any of his details of his medical history
Plan/recommendations
Respiratory status slowly improving-continues to have significant wheezing
Tolerated BiPAP most of the night-removed at 6 AM
Nebulizers
Decadron-Begin to decrease-decrease to 4 mg IV every 8 hours
Mucus clearing devices
Aspiration precautions
ABG reviewed 11/01/2023--74/75/7.34
Smoking cessation counseling-continues to smoke 1 and half packs of cigarettes daily
Reviewed cardiology correspondence
Echocardiogram noted. Moderate pericardial effusion noted
Will try to obtain records from [facility] (oncology, pulmonary)
History of lung cancer with prior incomplete treatment noted
Head of bed elevated, aspiration precautions
DVT prophylaxis: Continue enoxaparin. Continue mechanical prophylaxis
GI prophylaxis: Not indicated
Out of bed to chair, ambulate, PT/OT
Outpatient pulmonary follow-up
Subjective Data
-
Date of Service:
Date of Service: November 02, 2023
Chief Complaint: Pulmonary Follow Up
Subjective:
Tolerated BiPAP, overall states that his breathing is improved, no chest pain, abdominal pain or increased leg swelling
Review of Systems
General: Other (Per HPI)
Objective Data
Data Reviewed
Vital Signs / I&O:
Vital Signs
Temp Pulse Resp BP Pulse Ox
97.1 F 84 20 106/76 95
11/02/23 07:30 11/02/23 07:49 11/02/23 07:49 11/02/23 04:00 11/02/23 07:49
Intake and Output
11/01/23 11/02/23 11/03/23
06:59 06:59 06:59
Output Total 2650 / 2650 3325 / 3325
Balance -2650 / -2650 -3325 / -3325
SaO2: 95
Nasal Cannula flow liters per minute: 3
Physical Exam
General: Respiratory Distress (n) and Comfortable
HEENT: Normocephalic and Anicteric
Cardiovascular: Regular Rhythm, Murmur (n) and Rub (n)
Respiratory: Wheeze (Posterior expiratory throughout), Crackles (n), Rhonchi (Mild), Non-Labored Respirations, Accessory Resp Muscle Use (n), Stridor (n) and Other (Bronchial breath sounds)
GI: Soft, Non Distended and Non Tender
Neurology: Awake, Alert and No Motor Deficits (Moves extremities, generally weak)
Skin: Good Color, Cyanosis (n), Jaundice (n) and Rash (n)
Labs/Micro/Reports
Lab Data
11/02/23 05:01
11/02/23 05:01
Microbiology
10/30/23 17:03 Nasal Swab Influenza Types A & B ([facility]) - Final
Negative for Influenza A & B, NAAT
Negative results must be combined with clinical observations
and patient history.
Nucleic Acid Amplification test (NAAT)performed on the
[employer] platform.
[2023-11-02] MEDS: MIRALAX 17 GRAMS PO (09:39)
[2023-11-02] MEDS: NICODERM TRANSDERMAL 21 MG TRANSDERM (09:39)
[2023-11-02] MEDS: LASIX 10 MG PO (09:39)
[2023-11-02] MEDS: COLACE 100 MG PO ×2 (09:39→19:53)
[2023-11-02] MEDS: SENOKOT 8.6 MG PO ×2 (09:40→19:53)
--- NOTE | 2023-11-02 09:42 | W.PN.CD ---
Today's Communication / Plan
-
Follow up echo today
- with underlying lung Ca history may need to consider pericardiocentesis for suspected malignant effusion
Impression / Plan
-
Acute hypoxic respiratory failure, likely multifactorial picture
-patietn with hypercapnea - initially was on Bipap. Improved, now off Bipap.
-In the setting of COPD exacerbation with underlying lung cancer
-SARS COV 2-negative, influenza A/B negative
-pulmonology consulted
Pericardial effusion - moderate sized. without clear evidence of hemodynamic significance. BP and HR stable.
- continue to monitor. Follow up echo today
- with underlying lung Ca history will need to consider pericardiocentesis for suspected malignant effusion
Hyponatremia - improving management per nephrology
COPD, not on medical therapy at home, pulmonary following
Lung cancer, not currently on chemotherapy
Current smoker, cessation recommended
Physical Exam
Vital Signs/Labs
Vital Signs
Temp Pulse Resp BP Pulse Ox
97.1 F 84 20 106/76 95
11/02/23 07:30 11/02/23 07:49 11/02/23 07:49 11/02/23 04:00 11/02/23 09:18
11/01/23 11/02/23 11/03/23
06:59 06:59 06:59
Actual Weight 94 kg
11/02/23 05:01
11/02/23 05:01
PT 13.5 Sec (11.4-14.6) 10/31/23 05:09
INR 1.05 10/31/23 05:09
APTT 34.9 Sec (23.4-35.0) 10/31/23 05:09
Magnesium 2.1 mg/dl (1.6-2.3) 11/02/23 05:01
Free T4 < 0.07 ng/dl (0.78-2.19) L 10/31/23 05:09
10/30/23
17:03
Qcj-Y-Omtmgghnfth Pept 32.7
LAB Results
10/30/23
17:03
Troponin I < 0.012
Physical Exam
Constitutional: No acute distress and Comfortable
EENT: Moist mucous membranes
Cardiovascular: Rhythm & rate is regular, Pedal edema is absent, JVD pressure is normal and Systolic murmur absent
Respiratory: Respiratory effort normal
GI: Soft and Distention absent
Neuro/Psych: AO x 3
Data Reviewed
-
Date of Service: November 02, 2023
EKG: Other (Tele: SR 70s-80s)
Echo: Report Reviewed by me
Labs: Labs Reviewed by me
--- NOTE | 2023-11-02 10:34 | W.PN.NEPH.PH ---
Today's Communication / Plan
-
follow BMP
Assessment/Plan
-
Assessment:
Acute hypoxic resp failure
Lung cancer
Hyponatremia
pericardial effusion
Constipation
Plan:
lasix daily 10mg continues
bowel regimen
follow BMP
-
-
Date of Service: November 02, 2023
CC / HPI / ROS
-
Chief Complaint:
hyponatremia
History of Present Illness:
Na up to 134
BP stable
K normal
Review of Systems:
no CP/SOB
c/o constipation
Labs
-
Labs:
WBC 5.5 10^3/uL (4.8-10.8) 11/02/23 05:01
RBC 3.57 10^6/uL (4.70-6.10) L 11/02/23 05:01
Hgb 11.2 g/dL (13.0-18.0) L 11/02/23 05:01
Hct 32.9 % (39.0-52.0) L 11/02/23 05:01
Plt Count 166 10^3/uL (130-400) 11/02/23 05:01
Sodium 134 mmol/L (135-145) L 11/02/23 05:01
Potassium 4.9 mmol/L (3.5-5.1) 11/02/23 05:01
Chloride 90 mmol/L (98-107) L 11/02/23 05:01
Carbon Dioxide 42 mmol/L (22-30) H 11/02/23 05:01
BUN 21 mg/dl (9-20) H 11/02/23 05:01
Creatinine 0.8 mg/dL (0.7-1.3) 11/02/23 05:01
eGFR > 60.00 11/02/23 05:01
Glucose 116 mg/dl (70-99) H 11/02/23 05:01
Calcium 9.1 mg/dl (8.4-10.2) 11/02/23 05:01
Phosphorus 3.2 mg/dl (2.5-4.5) 11/02/23 05:01
Qbx-I-Pryxktnbiqp Pept 32.7 pg/ml 10/30/23 17:03
Albumin 3.9 g/dl (3.5-5.0) 11/02/23 05:01
Physical Exam
-
Vital Signs:
Vital Signs
Temp Pulse Resp BP Pulse Ox
97.1 F 86 17 119/89 92
11/02/23 07:30 11/02/23 10:00 11/02/23 10:00 11/02/23 10:00 11/02/23 10:00
Cardiovascular:: Regular rate and rhythm
Respiratory:: Bilateral: Coarse
Lung Excursion:: Normal
Abdomen:: Nontender and Soft
Bowel Sounds:: Normal
Extremity Edema:: +1: Bilateral:
--- NOTE | 2023-11-02 14:10 | W.PN.HOSP.TC ---
Today's Communication/Plan
-
duonebs
wean steroids
echo, may pericardiocentesis
synthroid
med rec if possible
Assessment / Plan
Assessment / Plan
General: Comfortable, Conversant, Appears Chronically Ill and Other (hoarse voice)
HEENT: NormoCephalic, Anicteric and Other (dry)
Respiratory: Wheezes (diffuse expiratory wheeze, tight lungs with little air movement)
Cardiac: S1/S2 and Regular Rhythm
# Acute on chronic hypercapnic respiratory failure
-Acute COPD observation, suspected
-Chronic COPD on chronic O2
SARS-CoV-2 antigen negative, Influenza A and B negative
-Continue BiPAP, nights and naps
-DuoNebs scheduled and as needed
--Continue IV steroids - wean to 4mg q8h
-Pulm Consult appreciated
-Still continues to smoke
# Lung cancer
#4.7 mm right lower lobe nodule, 4 mm left lower lobe nodule
-per the patient has been treated at [facility].
-He had an experimental drug approximately 8 months ago that failed, and was supposed to receive chemotherapy. He notes that his insurance just approved this recently however he has been unable to find a ride to the hospital to get chemotherapy
-Right internal jugular Llnpuv-j-Fjpc catheter in the right upper chest, clean dry and intact
-F/u onc outpatient
-unclear staging
# Hyponatremia
-SIADH
-FWR
� Lasix
-improving
-Nephro recs
-Patient received 3% sodium chloride in the emergency department at 30 cc/h for a total of 250 cc and we will repeat his sodium level in 4 to 6 hours.
-Monitor electrolytes and sodium level closely.
# Tobacco abuse, 1 pack/day
-Starting nicotine patch here
-Encourage smoking cessation
# Pericardial effusion, possibly malignant
-No evidence for tamponade
-Cardiology has been consulted. There is no indication for an acute procedure at this time
-Will monitor the patient in the IMU and on telemetry monitoring
�Repeat echo today
- with underlying lung Ca history may need to consider pericardiocentesis for suspected malignant effusion
# Mild transaminitis with AST of 94
-Repeat LFTs in the morning
-improving
# Constipation
-Will start bowel regimen and monitor
#Hypothyroidism
-start synthroid
DVT prophylaxis-Lovenox
Full code
Total time spent on today's encounter was 52 minutes which included time spent in counseling the patient/family regarding diagnosis and treatment plan as listed above, goals of care, and symptom management. Case was discussed with nursing staff,
specialists, and care coordinators/case management. All labs and imaging personally reviewed by me. Remainder the time spent in detailed review of previous records, lab data, imaging, and other medical provider documentation.
Anticipated Discharge: 24 - 48 hours
Subjective/Interval History
-
Date of Service: November 02, 2023
wheezing still present, but feels better
Objective Data
-
Labs:
Laboratory Results
11/02/23
05:01
WBC 5.5
Hgb 11.2 L
Hct 32.9 L
Plt Count 166
Sodium 134 L
Potassium 4.9
Chloride 90 L
Carbon Dioxide 42 H
BUN 21 H
Creatinine 0.8
Glucose 116 H
Calcium 9.1
Total Bilirubin 0.3
AST 57
ALT 39
Alkaline Phosphatase 41
Vital Signs:
Vital Signs
Temp Pulse Resp BP Pulse Ox
96.6 F L 88 19 119/89 93
11/02/23 11:15 11/02/23 11:14 11/02/23 11:14 11/02/23 10:00 11/02/23 11:14
I&O
11/01/23 11/02/23 11/03/23
06:59 06:59 06:59
Output Total 2650 / 2650 3325 / 3325 425 / 425
Balance -2650 / -2650 -3325 / -3325 -425 / -425
Review of Systems
-
History Source: Patient
All other systems: Not reviewed unless documented
Data Reviewed
-
Diagnostic Radiology: Image personally visualized and interpreted and Report Reviewed by me
Labs: Labs Reviewed by me
[2023-11-02] MEDS: DECADRON 4 MG IV ×2 (17:13→23:26)
[2023-11-02] MEDS: LOVENOX 40 MG SC (17:14)
--- NOTE | 2023-11-02 17:48 | CM ---
Patient who was homeless with Hx including lung CA with Dx Acute on chronic hypercapnic respiratory failure, Acute COPD, hyponatremia, Pericardial effusion. O2 4L. BiPAP. Repeat echo today. Receiving IV Decadron. PT & OT recommend HH.
Patient will need to be seen by a PCP (he is residing with daughter in [facility]) in order to have VN for PT/OT.
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
Plan follow up with patient/daughter to confirm patient is returning to daughter's house.
--- NOTE | 2023-11-02 18:06 | PTCARENOTE ---
Pt received from IMU. AAOx3, ambulated to bed from [place], no complaints offered. RT in to give scheduled neb, able to turn O2 down to 2L. Tele monitor in place - SR on monitor. Oriented to room and POC. Able to make needs known.
[2023-11-03] VITALS (8 sets, daily range): BP systolic 92–129; BP diastolic 63–83; PULSE 2–85; O2SAT 94–96
[2023-11-03] MEDS: SYNTHROID 50 MCG PO (05:41)
[2023-11-03 05:57] LABS: White Blood Cell Count 6.3 10^3/uL (4.8-10.8)
[2023-11-03 05:58] LABS: Hematocrit 36.4 % (39.0-52.0); Hemoglobin 12.3 g/dL (13.0-18.0); Mean Corpuscular Hgb 32.1 pg (27.0-31.0); Red Blood Cell Count 3.83 10^6/uL (4.70-6.10)
[2023-11-03 06:00] LABS: Mean Corp Hgb Conc. 33.8 g/dL (33.0-37.0); Mean Platelet Volume 10.4 fL (7.4-10.4); Platelet Count 195 10^3/uL (130-400); Red Cell Dist. Width 15.6 % (11.5-14.5)
[2023-11-03 06:02] LABS: ALT (SGPT) 42 U/L (0-50); AST (SGOT) 59 U/L (17-59); Albumin 4.6 g/dl (3.5-5.0); Alkaline Phosphatase 45 U/L (38-126); Blood Urea Nitrogen 23 mg/dl (9-20); Calcium 9.8 mg/dl (8.4-10.2); Carbon Dioxide 39 mmol/L (22-30); Chloride 90 mmol/L (98-107); Estimated Creatinine Clearance 90 ml/min; Glucose 140 mg/dl (70-99); Phosphorus 3.9 mg/dl (2.5-4.5); Sodium 136 mmol/L (135-145); Total Bilirubin 0.5 mg/dl (0.2-1.3); Total Protein 6.9 g/dl (6.3-8.2); eGFR > 60.00
[2023-11-03] MEDS: DUONEB 3 ML INH ×3 (07:33→19:57)
--- NOTE | 2023-11-03 08:45 | W.PN.PUL.V3 ---
Today's Communication / Plan
-
no change Decadron - consider dec tomorrow
inc activity
wean O2
Bipap as tolerated
Assessment
-
58-year-old male with history of COPD, lung cancer ongoing tobacco use presents with progressive shortness of breath for the past 5 days. Patient has been living in a trailer for the last 6 months, chronic constipation. He has gained 30 pounds
over the past 6 months. He has not pursued therapy for his lung cancer due to transportation and insurance issues. We are asked to help from a pulmonary standpoint
Acute on chronic hypercapnic respiratory failure
Acute COPD exacerbation, suspected
Moderate pericardial effusion
Anemia/leukopenia
Hyponatremia
Hyperglycemia
Transaminitis
Abnormal EKG
30 pound weight gain x 6 months
Conditions present prior to admission:
History of lung cancer
Status post chemotherapy, noncompliant due to transportation
Diagnosed 2022, followed at [facility]
Left upper lobe abnormality per imaging, stage unclear
4.7 mm right lower lobe nodule, 4 mm left lower lobe nodule
COPD on home oxygen
Unfortunately, patient cannot recall any of his details of his medical history
Plan/recommendations
Respiratory status slowly improving-continues to have some exp wheezing
Tolerated BiPAP most of the night-removed at 6 AM
Nebulizers
Decadron 4 mg IV every 8 hours- consider reducing or changing to oral in next 24 hours
Mucus clearing devices
Aspiration precautions
ABG reviewed 11/01/2023--74/75/7.34
Smoking cessation counseling ongoing - continues to smoke 1 and half packs of cigarettes daily
Nicotien patch
Reviewed cardiology correspondence
Echocardiogram noted. Moderate pericardial effusion noted
Will try to obtain records from [facility] (oncology, pulmonary)
History of lung cancer with prior incomplete treatment noted
Head of bed elevated, aspiration precautions
DVT prophylaxis: Continue enoxaparin. Continue mechanical prophylaxis
GI prophylaxis: Not indicated
Out of bed to chair, ambulate, PT/OT
Outpatient pulmonary follow-up
Subjective Data
-
Date of Service:
Date of Service: November 03, 2023
Chief Complaint: Pulmonary Follow Up
Subjective:
still some sob but better, no cp, abd pain
Review of Systems
General: Other (per HPI)
Objective Data
Data Reviewed
Vital Signs / I&O:
Vital Signs
Temp Pulse Resp BP Pulse Ox
98.2 F 82 20 117/72 93
11/03/23 07:30 11/03/23 07:35 11/03/23 07:35 11/03/23 07:30 11/03/23 07:35
Intake and Output
11/02/23 11/03/23 11/04/23
06:59 06:59 06:59
Output Total 3325 / 3325 825 / 825
Balance -3325 / -3325 -825 / -825
SaO2: 93
Nasal Cannula flow liters per minute: 2
Physical Exam
General: Respiratory Distress (n) and Comfortable
HEENT: Normocephalic and Anicteric
Cardiovascular: Regular Rhythm, Murmur (n) and Rub (n)
Respiratory: Wheeze (Posterior expiratory throughout), Crackles (n), Rhonchi (Mild), Non-Labored Respirations, Accessory Resp Muscle Use (n), Stridor (n) and Other (Bronchial breath sounds)
GI: Soft, Non Distended and Non Tender
Neurology: Awake, Alert and No Motor Deficits (Moves extremities, generally weak)
Skin: Good Color, Cyanosis (n), Jaundice (n) and Rash (n)
Labs/Micro/Reports
Lab Data
11/03/23 03:50
11/03/23 03:50
[2023-11-03] MEDS: NICODERM TRANSDERMAL 21 MG TRANSDERM (09:31)
[2023-11-03] MEDS: LASIX 10 MG PO (09:31)
[2023-11-03] MEDS: DECADRON 4 MG IV ×2 (09:31→16:23)
[2023-11-03] MEDS: COLACE 100 MG PO ×2 (09:31→20:00)
[2023-11-03] MEDS: MIRALAX 17 GRAMS PO ×2 (09:32→16:26)
[2023-11-03] MEDS: SENOKOT 8.6 MG PO ×2 (09:32→20:00)
--- NOTE | 2023-11-03 09:57 | W.PN.NEPH.PH ---
Today's Communication / Plan
-
- sign off
- okay to continue lasix as outpatient
Assessment/Plan
-
Assessment:
Acute hypoxic resp failure
Lung cancer
Hyponatremia
pericardial effusion
Constipation
Plan:
lasix daily 10mg continues
bowel regimen
follow BMP
Labs now normalized. Nephrology will sign off at this time.
-
-
Date of Service: November 03, 2023
CC / HPI / ROS
-
Chief Complaint:
hyponatremia
History of Present Illness:
Na up to 136
BP stable
K normal
Review of Systems:
no CP/SOB
c/o constipation
Labs
-
Labs:
WBC 6.3 10^3/uL (4.8-10.8) 11/03/23 03:50
RBC 3.83 10^6/uL (4.70-6.10) L 11/03/23 03:50
Hgb 12.3 g/dL (13.0-18.0) L 11/03/23 03:50
Hct 36.4 % (39.0-52.0) L 11/03/23 03:50
Plt Count 195 10^3/uL (130-400) 11/03/23 03:50
Sodium 136 mmol/L (135-145) 11/03/23 03:50
Potassium 5.0 mmol/L (3.5-5.1) 11/03/23 03:50
Chloride 90 mmol/L (98-107) L 11/03/23 03:50
Carbon Dioxide 39 mmol/L (22-30) H 11/03/23 03:50
BUN 23 mg/dl (9-20) H 11/03/23 03:50
Creatinine 1.0 mg/dL (0.7-1.3) 11/03/23 03:50
eGFR > 60.00 11/03/23 03:50
Glucose 140 mg/dl (70-99) H 11/03/23 03:50
Calcium 9.8 mg/dl (8.4-10.2) 11/03/23 03:50
Phosphorus 3.9 mg/dl (2.5-4.5) 11/03/23 03:50
Ldq-Y-Fzxdsuaghin Pept 32.7 pg/ml 10/30/23 17:03
Albumin 4.6 g/dl (3.5-5.0) 11/03/23 03:50
Physical Exam
-
Vital Signs:
Vital Signs
Temp Pulse Resp BP Pulse Ox
98.2 F 82 20 117/72 93
11/03/23 07:30 11/03/23 07:35 11/03/23 07:35 11/03/23 07:30 11/03/23 08:45
Cardiovascular:: Regular rate and rhythm
Respiratory:: Bilateral: Coarse
Lung Excursion:: Normal
Abdomen:: Nontender and Soft
Bowel Sounds:: Normal
Extremity Edema:: None: Bilateral:
Hines Catheter: No
--- NOTE | 2023-11-03 11:13 | W.PN.CD ---
Today's Communication / Plan
-
repeat echo in one week as outpatient
Impression / Plan
-
Acute hypoxic respiratory failure, likely multifactorial picture: improved
-patient with hypercapnea - initially was on Bipap. Improved, now off Bipap.
-In the setting of COPD exacerbation with underlying lung cancer
-SARS COV 2-negative, influenza A/B negative
-pulmonology consulted
Pericardial effusion - moderate sized. without clear evidence of hemodynamic significance. BP and HR stable.
- continue to monitor. Follow up echo stable 11/01
- reviewed with interventional cards: not large enough to drain at this time
-repeat echo in one week as outpatient
-discussed importance of this study with patient, and if effusion increases in size, we will re-evaluate for pericardiocentesis
Hyponatremia - improved, management per nephrology
COPD, not on medical therapy at home, pulmonary following
Lung cancer, not currently on chemotherapy
Current smoker, cessation recommended
Physical Exam
Vital Signs/Labs
Vital Signs
Temp Pulse Resp BP Pulse Ox
98.2 F 82 20 117/72 93
11/03/23 07:30 11/03/23 07:35 11/03/23 07:35 11/03/23 07:30 11/03/23 08:45
11/03/23 03:50
11/03/23 03:50
PT 13.5 Sec (11.4-14.6) 10/31/23 05:09
INR 1.05 10/31/23 05:09
APTT 34.9 Sec (23.4-35.0) 10/31/23 05:09
Magnesium 2.0 mg/dl (1.6-2.3) 11/03/23 03:50
Free T4 < 0.07 ng/dl (0.78-2.19) L 10/31/23 05:09
10/30/23
17:03
Mqw-A-Ipkxvronusj Pept 32.7
Physical Exam
Constitutional: No acute distress and Comfortable
EENT: Moist mucous membranes
Cardiovascular: Rhythm & rate is regular, Pedal edema is absent, JVD pressure is normal and Systolic murmur absent
Respiratory: Respiratory effort normal
GI: Soft and Distention absent
Neuro/Psych: AO x 3
Data Reviewed
-
Date of Service: November 03, 2023
EKG: Other (Tele: SR 80s)
Labs: Labs Reviewed by me
--- NOTE | 2023-11-03 14:19 | W.PN.HOSP.TC ---
Today's Communication/Plan
-
cont decadron
duonebs
lasix
Assessment / Plan
Assessment / Plan
General: Comfortable, Conversant, Appears Chronically Ill and Other (hoarse voice)
HEENT: NormoCephalic, Anicteric and Other (dry)
Respiratory: Wheezes (diffuse expiratory wheeze, tight lungs with little air movement)
Cardiac: S1/S2 and Regular Rhythm
# Acute on chronic hypercapnic respiratory failure
-Acute COPD observation, suspected
-Chronic COPD on chronic O2
SARS-CoV-2 antigen negative, Influenza A and B negative
-Continue BiPAP, nights and naps
-DuoNebs scheduled and as needed
--Continue IV steroids - decadron 4mg q8h
-Pulm Consult appreciated
-Still continues to smoke
# Lung cancer
#4.7 mm right lower lobe nodule, 4 mm left lower lobe nodule
-per the patient has been treated at [facility].
-He had an experimental drug approximately 8 months ago that failed, and was supposed to receive chemotherapy. He notes that his insurance just approved this recently however he has been unable to find a ride to the hospital to get chemotherapy
-Right internal jugular [place]-s-Fseq catheter in the right upper chest, clean dry and intact
-F/u onc outpatient
-unclear staging
# Hyponatremia
-SIADH
-FWR
� Lasix
-improving
-Nephro recs
-Patient received 3% sodium chloride in the emergency department at 30 cc/h for a total of 250 cc and we will repeat his sodium level in 4 to 6 hours.
-Monitor electrolytes and sodium level closely.
# Tobacco abuse, 1 pack/day
-Starting nicotine patch here
-Encourage smoking cessation
# Pericardial effusion, possibly malignant
-No evidence for tamponade
-Cardiology has been consulted. There is no indication for an acute procedure at this time
-Will monitor the patient in the IMU and on telemetry monitoring
�Repeat echo today - moderate effusion - not enough to tap as per cards;
- with underlying lung Ca history may need to consider pericardiocentesis for suspected malignant effusion
-f/u echo outpatient in 1 week with cardiology
# Mild transaminitis with AST of 94
-Repeat LFTs in the morning
-improving
# Constipation
-Will start bowel regimen and monitor
#Hypothyroidism
-start synthroid
-noncompliant at home
DVT prophylaxis-Lovenox
Full code
Total time spent on today's encounter was 53 minutes which included time spent in counseling the patient/family regarding diagnosis and treatment plan as listed above, goals of care, and symptom management. Case was discussed with nursing staff,
specialists, and care coordinators/case management. All labs and imaging personally reviewed by me. Remainder the time spent in detailed review of previous records, lab data, imaging, and other medical provider documentation.
Anticipated Discharge: 24 - 48 hours
Subjective/Interval History
-
Date of Service: November 03, 2023
wheezing mildly improved
Objective Data
-
Labs:
Laboratory Results
11/03/23
03:50
WBC 6.3
Hgb 12.3 L
Hct 36.4 L
Plt Count 195
Sodium 136
Potassium 5.0
Chloride 90 L
Carbon Dioxide 39 H
BUN 23 H
Creatinine 1.0
Glucose 140 H
Calcium 9.8
Total Bilirubin 0.5
AST 59
ALT 42
Alkaline Phosphatase 45
Vital Signs:
Vital Signs
Temp Pulse Resp BP Pulse Ox
98.2 F 81 16 117/72 94
11/03/23 07:30 11/03/23 12:20 11/03/23 12:20 11/03/23 07:30 11/03/23 12:20
I&O
11/02/23 11/03/23 11/04/23
06:59 06:59 06:59
Output Total 7305 / 3325 825 / 825
Balance -3325 / -3325 -825 / -825
Review of Systems
-
History Source: Patient
All other systems: Not reviewed unless documented
Data Reviewed
-
Diagnostic Radiology: Image personally visualized and interpreted and Report Reviewed by me
Labs: Labs Reviewed by me
[2023-11-03] MEDS: DUONEB INH (15:45)
--- NOTE | 2023-11-03 16:09 | CM ---
Case management following for d/c needs
Chart reviewed and met with pt
Remains on IV decadron, duonebs and lasix
Pt reports he lives alone in a trailer - does not have electricity
Given resources from [place]
Called daughter - LM requesting return call
Pt reports he does not have oxygen at home
CM will follow for d/c needs
Plan -tbd - housing/utility issues to be addressed prior to d/c
[2023-11-03] MEDS: SENOKOT-S 1 TABLET PO (16:25)
[2023-11-03] MEDS: LOVENOX 40 MG SC (17:44)
[2023-11-04] VITALS (7 sets, daily range): BP systolic 99–114; BP diastolic 58–83; PULSE 2–75
[2023-11-04] MEDS: DECADRON 4 MG IV ×3 (00:28→12:59)
[2023-11-04] MEDS: SYNTHROID 50 MCG PO (06:04)
[2023-11-04 07:36] LABS: Hematocrit 35.8 % (39.0-52.0); Hemoglobin 12.3 g/dL (13.0-18.0); Mean Corp Hgb Conc. 34.4 g/dL (33.0-37.0); Mean Corpuscular Hgb 32.3 pg (27.0-31.0); Mean Platelet Volume 10.5 fL (7.4-10.4); Platelet Count 183 10^3/uL (130-400); Red Blood Cell Count 3.81 10^6/uL (4.70-6.10); Red Cell Dist. Width 15.5 % (11.5-14.5)
[2023-11-04] MEDS: DUONEB 3 ML INH ×4 (07:50→18:14)
[2023-11-04 08:15] LABS: ALT (SGPT) 40 U/L (0-50); AST (SGOT) 52 U/L (17-59); Albumin 4.4 g/dl (3.5-5.0); Alkaline Phosphatase 43 U/L (38-126); Blood Urea Nitrogen 20 mg/dl (9-20); Calcium 9.4 mg/dl (8.4-10.2); Carbon Dioxide 40 mmol/L (22-30); Chloride 86 mmol/L (98-107); Estimated Creatinine Clearance 90 ml/min; Glucose 120 mg/dl (70-99); Magnesium 1.9 mg/dl (1.6-2.3); Phosphorus 4.1 mg/dl (2.5-4.5); Potassium 4.6 mmol/L (3.5-5.1); Sodium 133 mmol/L (135-145); Total Bilirubin 0.5 mg/dl (0.2-1.3); Total Protein 6.7 g/dl (6.3-8.2); eGFR > 60.00
[2023-11-04] MEDS: NICODERM TRANSDERMAL 21 MG TRANSDERM (08:15)
[2023-11-04] MEDS: LASIX 10 MG PO (08:16)
[2023-11-04] MEDS: SENOKOT 8.6 MG PO ×2 (08:16→19:39)
[2023-11-04] MEDS: COLACE 100 MG PO ×2 (08:16→19:39)
[2023-11-04] MEDS: MIRALAX 17 GRAMS PO (08:16)
--- NOTE | 2023-11-04 12:24 | W.PN.HOSP.TC ---
Today's Communication/Plan
-
wean decadron to q12h; anticipate switching to po pred taper tomorrow
disposition efforts: will be difficult as patient may be undomiciled
Assessment / Plan
Assessment / Plan
General: Comfortable, Conversant, Appears Chronically Ill and Other (hoarse voice)
HEENT: NormoCephalic, Anicteric and Other (dry)
Respiratory: Wheezes (diffuse expiratory wheeze, improved from prior)
Cardiac: S1/S2 and Regular Rhythm
# Acute on chronic hypercapnic respiratory failure
-Acute COPD observation, suspected
-Chronic COPD on chronic O2
SARS-CoV-2 antigen negative, Influenza A and B negative
-Continue BiPAP, nights and naps
-DuoNebs scheduled and as needed
--Continue IV steroids - wean decadron to 4mg q12h - anticipate switching to PO pred taper tomorrow
-Pulm Consult appreciated
-Still continues to smoke
# Lung cancer
#4.7 mm right lower lobe nodule, 4 mm left lower lobe nodule
-per the patient has been treated at [facility].
-He had an experimental drug approximately 8 months ago that failed, and was supposed to receive chemotherapy. He notes that his insurance just approved this recently however he has been unable to find a ride to the hospital to get chemotherapy
-Right internal jugular Kvsfdg-g-Umys catheter in the right upper chest, clean dry and intact
-F/u onc outpatient - has f/u this monday
-unclear staging
# Hyponatremia
-SIADH
-FWR
�Cont Lasix
-improving
-Nephro recs
-Patient received 3% sodium chloride in the emergency department at 30 cc/h for a total of 250 cc and we will repeat his sodium level in 4 to 6 hours.
-Monitor electrolytes and sodium level closely.
# Tobacco abuse, 1 pack/day
-Starting nicotine patch here
-Encourage smoking cessation
# Pericardial effusion, possibly malignant
-No evidence for tamponade
-Cardiology has been consulted. There is no indication for an acute procedure at this time
-Will monitor the patient in the IMU and on telemetry monitoring
�Repeat echo today - moderate effusion - not enough to tap as per cards;
- with underlying lung Ca history may need to consider pericardiocentesis for suspected malignant effusion
-f/u echo outpatient in 1 week with cardiology
# Mild transaminitis with AST of 94
-Repeat LFTs in the morning
-resolved
# Constipation
-Will start bowel regimen and monitor
#Hypothyroidism
-start synthroid
-noncompliant at home
DVT prophylaxis-Lovenox
Full code
Dispo: Patient has possibly no home, no bipap, transportation; working with for dispo.
Anticipated Discharge: > 48 hours
Subjective/Interval History
-
Date of Service: November 04, 2023
Wheezing improved
Objective Data
-
Labs:
Laboratory Results
11/04/23
05:51
WBC 5.0
Hgb 12.3 L
Hct 35.8 L
Plt Count 183
Sodium 133 L
Potassium 4.6
Chloride 86 L
Carbon Dioxide 40 H
BUN 20
Creatinine 1.0
Glucose 120 H
Calcium 9.4
Total Bilirubin 0.5
AST 52
ALT 40
Alkaline Phosphatase 43
Vital Signs:
Vital Signs
Temp Pulse Resp BP Pulse Ox
98.2 F 77 16 109/71 97
11/04/23 07:30 11/04/23 10:59 11/04/23 10:59 11/04/23 07:30 11/04/23 10:59
I&O
11/03/23 11/04/23 11/05/23
06:59 06:59 06:59
Intake Total 1520 / 1520
Output Total 825 / 825
Balance -825 / -825 1520 / 1520
Review of Systems
-
History Source: Patient
All other systems: Not reviewed unless documented
Data Reviewed
-
Diagnostic Radiology: Image personally visualized and interpreted and Report Reviewed by me
Labs: Labs Reviewed by me
--- NOTE | 2023-11-04 13:14 | W.PN.PUL3 ---
Today's Communication / Plan
-
Transition to prednisone tomorrow
Continue nebulizer
Restart Advair upon discharge
Home oxygen assessment closer to discharge.
Continue nocturnal BiPAP while in the hospital, will need to be readdressed in the outpatient setting.
He strongly encouraged to follow-up with his oncologist.
Strongly encouraged to quit smoking
Needs outpatient pulmonary follow-up as well.
Disposition efforts
Sign off
Assessment
-
58-year-old male with history of COPD, lung cancer ongoing tobacco use presents with progressive shortness of breath for the past 5 days. Patient has been living in a trailer for the last 6 months, chronic constipation. He has gained 30 pounds
over the past 6 months. He has not pursued therapy for his lung cancer due to transportation and insurance issues. We are asked to help from a pulmonary standpoint
Acute on chronic hypercapnic respiratory failure
Acute COPD exacerbation, suspected
Moderate pericardial effusion
Anemia/leukopenia
Hyponatremia
Hyperglycemia
Transaminitis
Abnormal EKG
30 pound weight gain x 6 months
Conditions present prior to admission:
History of lung cancer
Status post chemotherapy, noncompliant due to transportation
Diagnosed 2022, followed at [facility]
Left upper lobe abnormality per imaging, stage unclear
4.7 mm right lower lobe nodule, 4 mm left lower lobe nodule
COPD on home oxygen
Reportedly on Advair in the outpatient setting.
Unfortunately, patient cannot recall any of his details of his medical history
Plan/recommendations
Clinically improving.
Bronchospasm improved.
On low rate supplemental oxygen, home oxygen assessment closer to discharge
-
Nebulizers continue for now. DuoNebs ozaufw-sba-okece.
Can restart Advair upon discharge.
I agree with reducing dexamethasone. Transition to prednisone tomorrow
Mucus clearing devices
-
ABG11/01/2023--74/75/7.34
Continue nocturnal BiPAP while in the hospital.
This will need to be addressed in the outpatient setting.
Smoking cessation counseling ongoing - continues to smoke 1 and half packs of cigarettes daily
Nicotien patch
Reviewed cardiology correspondence
Echocardiogram noted. Moderate pericardial effusion noted
Effusion not enlarged for draining
To be followed in the outpatient setting with short-term echocardiogram.
records from [facility] (oncology, pulmonary) not available at this point.
History of lung cancer with prior incomplete treatment noted
he was encouraged to follow-up.
Smoking cessation encouraged. Nicotine patch in place.
Head of bed elevated, aspiration precautions
DVT prophylaxis: Continue enoxaparin. Continue mechanical prophylaxis
Out of bed to chair, ambulate, PT/OT
Outpatient pulmonary follow-up
Disposition efforts. Patient is homeless.
-
No additional recommendations from the pulmonary perspective. Okay to transition to prednisone tomorrow.
Needs outpatient pulmonary follow-up. He was strongly encouraged to follow-up with his oncologist.
Information for follow-up will be left in the chart. Patient advised to call for an appointment.
Subjective Data
-
Date of Service:
Date of Service: November 04, 2023
Chief Complaint: Pulmonary Follow Up
Subjective:
Patient feels better.
Remains on supplemental oxygen denies hemoptysis or phlegm production
Review of Systems
Cardiopulmonary: Dyspnea, Cough (n), Sputum Production (n), Orthopnea (n) and Hemoptysis (n)
Objective Data
Data Reviewed
Vital Signs / I&O / Oxygen:
Vital Signs
Temp Pulse Resp BP Pulse Ox
98.2 F 79 18 110/58 98
11/04/23 11:30 11/04/23 11:30 11/04/23 11:30 11/04/23 11:30 11/04/23 11:30
Intake and Output
11/03/23 11/04/23 11/05/23
06:59 06:59 06:59
Intake Total 1520 / 1520
Output Total 825 / 825
Balance -825 / -825 1520 / 1520
SaO2 98
Nasal Cannula flow liters per 3
minute
Physical Exam
General: Respiratory Distress (n) and Comfortable
HEENT: Normocephalic and Anicteric
Cardiovascular: Regular Rhythm, Murmur (n) and Rub (n)
Respiratory: Wheeze (None), Crackles (n), Rhonchi (Mild), Non-Labored Respirations, Accessory Resp Muscle Use (n), Stridor (n) and Other (Bronchial breath sounds)
GI: Soft, Non Distended and Non Tender
Neurology: Awake, Alert and No Motor Deficits (Moves extremities, generally weak)
Skin: Good Color, Cyanosis (n), Jaundice (n) and Rash (n)
Labs/Micro/Reports
Lab Data
11/04/23 05:51
11/04/23 05:51
[2023-11-04] MEDS: LOVENOX 40 MG SC (17:36)
[2023-11-04] MEDS: DULCOLAX 10 MG RECTAL (17:48)
[2023-11-05] VITALS (8 sets, daily range): BP systolic 93–116; BP diastolic 57–95; PULSE 2–78
[2023-11-05] MEDS: DECADRON 4 MG IV (02:39)
[2023-11-05] MEDS: SYNTHROID 50 MCG PO (05:56)
[2023-11-05] MEDS: DUONEB 3 ML INH ×3 (07:45→19:49)
[2023-11-05 08:21] LABS: Hematocrit 35.8 % (39.0-52.0); Hemoglobin 11.9 g/dL (13.0-18.0); Mean Corp Hgb Conc. 33.2 g/dL (33.0-37.0); Mean Corpuscular Hgb 30.9 pg (27.0-31.0); Mean Platelet Volume 10.3 fL (7.4-10.4); Platelet Count 193 10^3/uL (130-400); Red Blood Cell Count 3.85 10^6/uL (4.70-6.10); Red Cell Dist. Width 15.7 % (11.5-14.5); White Blood Cell Count 5.1 10^3/uL (4.8-10.8)
[2023-11-05 08:30] LABS: ALT (SGPT) 35 U/L (0-50); AST (SGOT) 44 U/L (17-59); Albumin 4.2 g/dl (3.5-5.0); Alkaline Phosphatase 39 U/L (38-126); Blood Urea Nitrogen 21 mg/dl (9-20); Calcium 9.4 mg/dl (8.4-10.2); Chloride 85 mmol/L (98-107); Estimated Creatinine Clearance 90 ml/min; Glucose 103 mg/dl (70-99); Potassium 4.4 mmol/L (3.5-5.1); Sodium 132 mmol/L (135-145); Total Bilirubin 0.5 mg/dl (0.2-1.3); Total Protein 6.5 g/dl (6.3-8.2); eGFR > 60.00
[2023-11-05 08:41] LABS: Carbon Dioxide 43 mmol/L (22-30)
[2023-11-05] MEDS: LASIX 10 MG PO (09:27)
[2023-11-05] MEDS: SENOKOT 8.6 MG PO ×2 (09:28→20:31)
[2023-11-05] MEDS: NICODERM TRANSDERMAL 21 MG TRANSDERM (09:28)
[2023-11-05] MEDS: COLACE 100 MG PO ×2 (09:28→20:32)
[2023-11-05] MEDS: MIRALAX 17 GRAMS PO (09:29)
[2023-11-05] MEDS: DELTASONE 40 MG PO (11:49)
--- NOTE | 2023-11-05 13:03 | W.PN.HOSP.TC ---
Today's Communication/Plan
-
switch to pred taper
dc ready - CM aware; working on social issues
Assessment / Plan
Assessment / Plan
General: Comfortable, Conversant, Appears Chronically Ill and Other (hoarse voice)
HEENT: NormoCephalic, Anicteric and Other (dry)
Respiratory: Wheezes (diffuse expiratory wheeze, improved from prior)
Cardiac: S1/S2 and Regular Rhythm
# Acute on chronic hypercapnic respiratory failure
-Acute COPD observation, suspected
-Chronic COPD on chronic O2
SARS-CoV-2 antigen negative, Influenza A and B negative
-Continue BiPAP, nights and naps
-DuoNebs scheduled and as needed
-switch to PO pred - with taper;
-Pulm Consult appreciated
-Still continues to smoke
# Lung cancer
#4.7 mm right lower lobe nodule, 4 mm left lower lobe nodule
-per the patient has been treated at [facility].
-He had an experimental drug approximately 8 months ago that failed, and was supposed to receive chemotherapy. He notes that his insurance just approved this recently however he has been unable to find a ride to the hospital to get chemotherapy
-Right internal jugular Uhrgdg-s-Mcvy catheter in the right upper chest, clean dry and intact
-F/u onc outpatient - has f/u this monday
-unclear staging
# Hyponatremia
-SIADH
-FWR
�Cont Lasix
-improving
-Nephro recs
-Patient received 3% sodium chloride in the emergency department at 30 cc/h for a total of 250 cc and we will repeat his sodium level in 4 to 6 hours.
-Monitor electrolytes and sodium level closely.
# Tobacco abuse, 1 pack/day
-Starting nicotine patch here
-Encourage smoking cessation
# Pericardial effusion, possibly malignant
-No evidence for tamponade
-Cardiology has been consulted. There is no indication for an acute procedure at this time
-Will monitor the patient in the IMU and on telemetry monitoring
�Repeat echo - moderate effusion - not enough to tap as per cards;
- with underlying lung Ca history may need to consider pericardiocentesis for suspected malignant effusion
-f/u echo outpatient in 1 week with cardiology (if still in the hospital - can f/u with cards)
# Mild transaminitis with AST of 94
-Repeat LFTs in the morning
-resolved
# Constipation
-Will start bowel regimen and monitor
#Hypothyroidism
-start synthroid
-noncompliant at home
DVT prophylaxis-Lovenox
Full code
Dispo: Patient has possibly no home, no bipap, transportation; working with for dispo.
Anticipated Discharge: 24 - 48 hours
Subjective/Interval History
-
Date of Service: November 05, 2023
wheezing improved
Objective Data
-
Labs:
Laboratory Results
11/05/23
07:20
WBC 5.1
Hgb 11.9 L
Hct 35.8 L
Plt Count 193
Sodium 132 L
Potassium 4.4
Chloride 85 L
Carbon Dioxide 43 H
BUN 21 H
Creatinine 1.0
Glucose 103 H
Calcium 9.4
Total Bilirubin 0.5
AST 44
ALT 35
Alkaline Phosphatase 39
Vital Signs:
Vital Signs
Temp Pulse Resp BP Pulse Ox
98.8 F 87 16 114/76 92
11/05/23 11:26 11/05/23 11:26 11/05/23 11:26 11/05/23 11:26 11/05/23 11:26
I&O
11/04/23 11/05/23 11/06/23
06:59 06:59 06:59
Intake Total 1520 / 1520 1760 / 1760
Balance 1520 / 1520 1760 / 1760
Review of Systems
-
History Source: Patient
All other systems: Not reviewed unless documented
Data Reviewed
-
Diagnostic Radiology: Image personally visualized and interpreted and Report Reviewed by me
Labs: Labs Reviewed by me
[2023-11-05] MEDS: DUONEB INH (13:11)
--- NOTE | 2023-11-05 15:53 | CM ---
Case management following for d/c planning
Met with pt at bedside
Reports lives in trailer - no running water, no electricity
Given resources from [facility]
Discussed possibility of living with daughter or another family member for brief period - declining
Pt will likely need home O2 and will need transport to appointments. Reports he does not have family members or friends that can assist
CM will follow with additional resources.
Plan -tbd - housing/utility issues to be addressed prior to d/c
[2023-11-05] MEDS: LOVENOX 40 MG SC (17:33)
[2023-11-06] VITALS (10 sets, daily range): BP systolic 103–121; BP diastolic 64–84; PULSE 2–90; O2SAT 95–97
[2023-11-06 05:14] LABS: Mean Corp Hgb Conc. 34.3 g/dL (33.0-37.0); Mean Corpuscular Hgb 31.4 pg (27.0-31.0); Mean Corpuscular Volume 91.6 fL (80.0-94.0); Mean Platelet Volume 9.8 fL (7.4-10.4); Platelet Count 188 10^3/uL (130-400); Red Blood Cell Count 3.82 10^6/uL (4.70-6.10); Red Cell Dist. Width 15.5 % (11.5-14.5); White Blood Cell Count 5.8 10^3/uL (4.8-10.8)
[2023-11-06 05:36] LABS: Blood Urea Nitrogen 22 mg/dl (9-20); Calcium 9.4 mg/dl (8.4-10.2); Chloride 88 mmol/L (98-107); Estimated Creatinine Clearance 100 ml/min; Glucose 109 mg/dl (70-99); Potassium 4.5 mmol/L (3.5-5.1); Sodium 133 mmol/L (135-145); eGFR > 60.00
[2023-11-06 05:47] LABS: Carbon Dioxide 41 mmol/L (22-30)
[2023-11-06] MEDS: SYNTHROID 50 MCG PO (05:53)
[2023-11-06] MEDS: DUONEB 3 ML INH ×4 (08:22→19:38)
[2023-11-06] MEDS: COLACE 100 MG PO ×2 (09:40→20:46)
[2023-11-06] MEDS: DELTASONE 40 MG PO (09:40)
[2023-11-06] MEDS: LASIX 10 MG PO (09:40)
[2023-11-06] MEDS: NICODERM TRANSDERMAL 21 MG TRANSDERM (09:41)
[2023-11-06] MEDS: SENOKOT 8.6 MG PO ×2 (09:41→20:46)
[2023-11-06] MEDS: MIRALAX 17 GRAMS PO (09:41)
--- NOTE | 2023-11-06 12:24 | W.PN.HOSP.TC ---
Today's Communication/Plan
-
see A/P
Assessment / Plan
Assessment / Plan
A/P:
# Acute on chronic hypercapnic respiratory failure
# Acute COPD exacerbation
Check home O2 assessment, pt is at 97% on 2L NC, I do not suspect he would need O2 going forward
COVID/Flu neg
Continue BiPAP nights and naps while in the hospital, follow up with pulm outpt
DuoNebs scheduled and as needed
Cont PO prednisone 40 mg daily
Pulm input appreciated
Encourage smoking cessation
# Lung cancer, unclear staging
# 4.7 mm right lower lobe nodule, 4 mm left lower lobe nodule
per the patient has been treated at [facility].
He had an experimental drug approximately 8 months ago that failed, and was supposed to receive chemotherapy.
He notes that his insurance just approved this recently however he has been unable to find a ride to the hospital to get chemotherapy
Right internal jugular Bgwfiv-a-Mkof catheter in the right upper chest, clean dry and intact
Recc f/u onc outpatient
# Hyponatremia 2/2 SIADH
Cont FWR
Cont Lasix
Appreciate Nephro recs
s/p 3% sodium chloride in the emergency department
Monitor electrolytes and sodium level closely.
# Tobacco abuse, 1 pack/day
Started nicotine patch here
Encourage smoking cessation
# Pericardial effusion, possibly malignant
No evidence for tamponade
Cardiology has been consulted. There is no indication for an acute procedure at this time
Repeat echo noted moderate effusion - not enough to tap as per cards;
with underlying lung Ca history may need to consider pericardiocentesis for suspected malignant effusion
f/u echo outpatient in 1 week with cardiology (if still in the hospital - can f/u with cards)
# Mild transaminitis , resolved
# Constipation
bowel regimen and monitor
# Hypothyroidism
TSH 20.7, FT4 < 0.07
started Synthroid 50 mcg , he is noncompliant at home
DVT prophylaxis-Lovenox
Full code
Dispo: HH per PT recc
DW CM
Anticipated Discharge: Within 24 hours
Subjective/Interval History
-
Date of Service: November 06, 2023
Objective Data
-
Labs:
Laboratory Results
11/06/23
05:00
WBC 5.8
Hgb 12.0 L
Hct 35.0 L
Plt Count 188
Sodium 133 L
Potassium 4.5
Chloride 88 L
Carbon Dioxide 41 H
BUN 22 H
Creatinine 0.9
Glucose 109 H
Calcium 9.4
Vital Signs:
Vital Signs
Temp Pulse Resp BP Pulse Ox
36.9 C 81 16 121/78 97
11/06/23 07:30 11/06/23 11:31 11/06/23 11:31 11/06/23 11:30 11/06/23 11:31
I&O
11/05/23 11/06/23 11/07/23
06:59 06:59 06:59
Intake Total 1760 / 1760 840 / 840
Balance 1760 / 1760 840 / 840
Review of Systems
-
History Source: Patient
All other systems: Reviewed and negative
Physical Exam
-
General: Well Developed, Well Nourished, Comfortable and Conversant
HEENT: Normocephalic, Atraumatic, Nose Appears Normal, Ears Appear Normal and Oxygen (3L NC)
Respiratory: Clear to Auscultation and Non Labored Respirations; Negative Wheezes or Accessory Resp Muscle Use
Cardiac: Regular Rhythm and S1/S2
GI: Soft, Nontender, Nondistended and Normal Bowel Sounds
Skin: Warm and Dry
Neuro: Awake, Alert and Oriented
Psych: Calm and Intact Judgement/Insight
Data Reviewed
-
Diagnostic Radiology: Image personally visualized and interpreted and Report Reviewed by me
Labs: Labs Reviewed by me
--- NOTE | 2023-11-06 16:18 | CM ---
CM reviewed familia and pt remains with oxygen needs
Will benefit from home eval if unable to wean
Lengthy call with [employer] [phone] too atempt enrollment into [facility] medical program and reinstatement of power
Per medical line, pt does not qualify as he does not have an active [employer] account, account has been closed
He will need re-enroll with [employer] and then physician can completed medical paperwork for necessity of power
Per medical line, customer service to provide application, medical line will only review and approve/deny
CM attempted bedside visit
Briefly discuss transport resources- [facility] ride program along with [facility] info in dc folder
Physician visit bedside and further resource discuss to be deferred
Will need to review [employer] and provide resident clinic info as pt without PCP
Pt with [facility] recommendations and currently does not qualify as without PCP
Per [facility], does not service zip code
Discussion with Dr. Montgomery- will attempt oxygen weaning given difficulties with reinstatement of power
Pt may need to consider dc to family homes
Discharge Disposition- home with community services, watch for VN and O2 needs
[2023-11-06] MEDS: LOVENOX 40 MG SC (17:05)
[2023-11-07 02:45] VITALS: PULSE 2; PULSE 80
[2023-11-07 05:44] LABS: Hemoglobin 11.9 g/dL (13.0-18.0); Mean Corpuscular Hgb 32.2 pg (27.0-31.0); Mean Corpuscular Volume 94.6 fL (80.0-94.0); Mean Platelet Volume 9.8 fL (7.4-10.4); Platelet Count 171 10^3/uL (130-400); Red Cell Dist. Width 15.4 % (11.5-14.5)
[2023-11-07 06:15] LABS: Blood Urea Nitrogen 21 mg/dl (9-20); Calcium 9.4 mg/dl (8.4-10.2); Carbon Dioxide 36 mmol/L (22-30); Chloride 91 mmol/L (98-107); Estimated Creatinine Clearance 100 ml/min; Glucose 97 mg/dl (70-99); Magnesium 2.1 mg/dl (1.6-2.3); Potassium 4.4 mmol/L (3.5-5.1); Sodium 133 mmol/L (135-145); eGFR > 60.00
[2023-11-07] MEDS: SYNTHROID 50 MCG PO (06:15)
[2023-11-07 07:23] VITALS: BP 103/65
[2023-11-07] MEDS: DUONEB 3 ML INH ×2 (07:27→11:56)
[2023-11-07] MEDS: COLACE 100 MG PO (08:44)
[2023-11-07] MEDS: SENOKOT 8.6 MG PO (08:44)
[2023-11-07] MEDS: DELTASONE 40 MG PO (08:45)
[2023-11-07] MEDS: NICODERM TRANSDERMAL 21 MG TRANSDERM (08:45)
[2023-11-07] MEDS: MIRALAX 17 GRAMS PO (08:45)
[2023-11-07] MEDS: LASIX 10 MG PO (08:45)
--- NOTE | 2023-11-07 11:22 | W.PN.HOSP.TC ---
Addendum entered and electronically signed by Sissy Montgomery MD 11/07/23 13:01:
total DC time 36 min
Original Note:
Today's Communication/Plan
-
DC today
Assessment / Plan
Assessment / Plan
A/P:
# Acute on chronic hypercapnic respiratory failure
# Acute COPD exacerbation
Check home O2 assessment, pt is at 97% on 2L NC, I do not suspect he would need O2 going forward
COVID/Flu neg
Continue BiPAP nights and naps while in the hospital, follow up with pulm outpt
DuoNebs scheduled and as needed, follow up with pulm outpt
Cont PO prednisone 40 mg daily x5 more days
Pulm input appreciated
Encourage smoking cessation
# Lung cancer, unclear staging
# 4.7 mm right lower lobe nodule, 4 mm left lower lobe nodule
per the patient has been treated at [facility].
He had an experimental drug approximately 8 months ago that failed, and was supposed to receive chemotherapy.
He notes that his insurance just approved this recently however he has been unable to find a ride to the hospital to get chemotherapy
Right internal jugular [id number] catheter in the right upper chest, clean dry and intact
Recc f/u onc outpatient
# Hyponatremia 2/2 SIADH
Cont FWR
Cont Lasix
Appreciate Nephro recs
s/p 3% sodium chloride in the emergency department
Monitor electrolytes and sodium level closely.
Sodium level at 133 today
# Tobacco abuse, 1 pack/day
Started nicotine patch here
Encourage smoking cessation
# Pericardial effusion, possibly malignant
No evidence for tamponade
Cardiology has been consulted. There is no indication for an acute procedure at this time
Repeat echo noted moderate effusion - not enough to tap as per cards;
with underlying lung Ca history may need to consider pericardiocentesis for suspected malignant effusion
f/u echo outpatient in 1 week with cardiology (if still in the hospital - can f/u with cards)
# Mild transaminitis , resolved
# Constipation
bowel regimen and monitor
# Hypothyroidism
TSH 20.7, FT4 < 0.07
started Synthroid 50 mcg , he is noncompliant at home
DVT prophylaxis-Lovenox
Full code
Dispo: HH per PT recc
DW RN
Anticipated Discharge: Today
Subjective/Interval History
-
Date of Service: November 07, 2023
Objective Data
-
Labs:
Laboratory Results
11/07/23
05:32
WBC 6.0
Hgb 11.9 L
Hct 35.0 L
Plt Count 171
Sodium 133 L
Potassium 4.4
Chloride 91 L
Carbon Dioxide 36 H
BUN 21 H
Creatinine 0.9
Glucose 97
Calcium 9.4
Vital Signs:
Vital Signs
Temp Pulse Resp BP Pulse Ox
36.9 C 76 18 103/65 95
11/07/23 07:23 11/07/23 08:13 11/07/23 08:13 11/07/23 07:23 11/07/23 08:13
I&O
11/06/23 11/07/23 11/08/23
06:59 06:59 06:59
Intake Total 840 / 840 1430 / 1430
Balance 840 / 840 1430 / 1430
Review of Systems
-
History Source: Patient
All other systems: Reviewed and negative
Physical Exam
-
General: Well Developed, Well Nourished, Comfortable and Conversant
HEENT: Normocephalic, Atraumatic, Nose Appears Normal and Ears Appear Normal
Respiratory: Clear to Auscultation and Non Labored Respirations; Negative Wheezes or Accessory Resp Muscle Use
Cardiac: Regular Rhythm and S1/S2
GI: Soft, Nontender, Nondistended and Normal Bowel Sounds
Skin: Warm and Dry
Neuro: Awake, Alert and Oriented
Psych: Calm and Intact Judgement/Insight
Data Reviewed
-
Diagnostic Radiology: Image personally visualized and interpreted and Report Reviewed by me
Labs: Labs Reviewed by me
--- NOTE | 2023-11-07 12:00 | CM ---
Case management following for d/c planning
Met with pt at bedside
Given PCP info for [facility], Cares program for [employer] as pt reports he does not have electricity at home, and [employer] resource guide. Also given [employer] rides info and Info for [facility] Transport program.
Discussed importance of following up with obtaining PCP and keeping appointments
Weaned to room air
Discussed d/c planning and d/c'ing to family members home for safety - refusing reports - 'I want to go home' Reports will leave on own if not d/c'ed
VN - has no PCP unable to refer
Plan - anticipate home no needs
--- NOTE | 2023-11-07 12:42 | W.DCSUMMARY ---
Discharge Summary
Discharge Data
Date of Admission: 10/30/23
Date of Discharge: 11/07/23
-
Pending Results: No
Hospital Course
Principal Diagnosis:
COPD exacerbation
Chronic Diagnoses:�
Chronic hypoxic respiratory failure, patient was able to be weaned off oxygen this admission
Hyponatremia due to Syndrome of inappropriate�antidiuretic�hormone ADH release (SIADH)
Tobacco abuse, 1 pack/day
Pericardial effusion, possibly malignant in setting of lung cancer (unclear staging)
Lung cancer, unclear staging. 4.7 mm right lower lobe nodule, 4 mm left lower lobe nodule. Patient follows at [facility] for this.
Hypothyroidism
Consultations:�
Pulmonary
Cardiology
Procedures:�
None
Clinical course:�
This is a 58-year-old male, with past medical history as stated above, who presented with shortness of breath and hypoxia. He was admitted for COPD exacerbation.
Problem 1:
COPD exacerbation.
The patient was supposed to be using home oxygen, but has been noncompliant due to several social issues.
He was kept on oxygen support initially, but was able to be weaned off O2 support and back to room air on walking pulse ox assessment.
He can follow-up with pulmonary outpatient for CPAP/BiPAP HS evaluation.
He was discharged with oral prednisone 40 mg for 5 more days.
He has been encouraged to stop smoking, and nicotine patch was sent to his pharmacy.
Problem 2:
Hypothyroidism.
His TSH was at 20.7, and FT4 less than 0.07, likely due to medication noncompliance.
He has been informed to continue with his previously prescribed Synthroid dose at 50 mcg daily, and to check TSH reflex FT4 in 4 weeks with his PCP.
As for the rest of his medical problems, they were stable during his hospital stay.
Discharge Plan
-
Patient Disposition: Home (Routine Discharge)
Discharge Diagnosis/Procedures: COPD exacerbation; Lung cancer unclear staging (follows at [facility]); Hyponatremia due to SIADH; Pericardial effusion possibly malignant; Hypothyroidism
Condition: Fair
Diet: As tolerated, Low Cholesterol and Restrict fluids to 64 oz
Activity: As tolerated
Driving Restrictions: As prior to admission
Blood Work: TSH reflex FT4 in 4 weeks with your PCP
Others Tests: Echocardiogram 11/10/2023 at 1pm at the [facility] in [place]. Please arrive 15 minutes early.
Referrals:
Kyler Magana MD [Active] - in two to three weeks (May see MEASURING MACHINE OPERATOR)
NONE,* [Family Provider] - in less than 1 week
Prescriptions:
New
docusate sodium 100 mg Capsule
100 mg PO BID Qty: 60 3RF
prednisone 20 mg Tablet
40 mg PO DAILY 5 Days Qty: 10 0RF
furosemide 20 mg Tablet
10 mg PO DAILY Qty: 30 3RF
nicotine 21 mg/24 hr Patch 24 Hour
21 mg transdermal DAILY Qty: 28 1RF
sennosides [Senna Laxative] 8.6 mg Tablet
8.6 mg PO BID Qty: 30 3RF
Continued
levothyroxine 50 mcg Tablet
50 mcg PO DAILY Qty: 30 3RF
Patient Comments:
Last filled 09/2023, patient reports they have not taken medication in months due to no provider to write refills
albuterol sulfate 90 mcg/actuation Hfa Aerosol Inhaler
2 puff INHALATION Q4H PRN (Reason: sob/wheezing) Qty: 8.5 3RF
fluticasone propion-salmeterol [Advair HFA] 230-21 mcg/actuation Hfa Aerosol Inhaler
2 puff INHALATION BID Qty: 12 3RF
Discharge Orders:
Discharge Patient (As Directed); Ordered 11/07/23
Ordered By: Sissy Montgomery
Discharge Date and Time
Print Language: NIGERIAN
== END 2023-11-07 13:27 | disposition home or self-care (01) | DRG 643 ==
LOC: 3 WEST ACU 22:07
PROVIDERS: Internal Medicine; Nurse Practitioner Family; ADMITTING PHYSICIAN Internal Medicine; ATTENDING PHYSICIAN Internal Medicine; CONSULT PHYSICIAN Student in an Organized Health Care Education/Training Program; EMERGENCY PHYSICIAN Emergency Medicine; OTHER PHYSICIAN Internal Medicine Cardiovascular Disease; OTHER PHYSICIAN Internal Medicine Critical Care Medicine
PROC: 5A09357 Assistance with Respiratory Ventilation, Less than 24 Consecutive Hours, Continuous Positive Airway Pressure (ICD-10-PCS; 2023-10-31)
DX: E22.2 Syndrome of inappropriate secretion of antidiuretic hormone (principal); J96.21 Acute and chronic respiratory failure with hypoxia; J96.22 Acute and chronic respiratory failure with hypercapnia; J44.1 Chronic obstructive pulmonary disease with (acute) exacerbation; E87.29 Other acidosis; C34.32 Malignant neoplasm of lower lobe, left bronchus or lung; C34.31 Malignant neoplasm of lower lobe, right bronchus or lung; I31.31 Malignant pericardial effusion in diseases classified elsewhere; D64.9 Anemia, unspecified; E03.9 Hypothyroidism, unspecified; Z95.828 Presence of other vascular implants and grafts; Z99.81 Dependence on supplemental oxygen; D72.819 Decreased white blood cell count, unspecified; K59.09 Other constipation; F17.210 Nicotine dependence, cigarettes, uncomplicated; R74.01 Elevation of levels of liver transaminase levels; R73.9 Hyperglycemia, unspecified; R60.0 Localized edema; R94.31 Abnormal electrocardiogram [ECG] [EKG]; Z91.198 Patient's noncompliance with other medical treatment and regimen for other reason; Z91.148 Patient's other noncompliance with medication regimen for other reason; Z79.51 Long term (current) use of inhaled steroids; Z79.890 Hormone replacement therapy; Z79.899 Other long term (current) drug therapy; Z11.52 Encounter for screening for COVID-19
CPT/HCPCS: 93308; 36600; 51701; 71046; 74019; 74176; 76775; 80048; 80053; 82805; 83735; 83880; 83930; 83935; 84100; 84300; 84439; 84443; 84484; 85025; 85027; 85610; 85730; 87502; 87811; 93005; 93306; 94640; 94660; 96375; 97116; 97162; 97166; 97530; 97535; 99285